=== PATIENT | male | born 1935 | race African-American/Black ===

== ENCOUNTER 2016-05-26 12:13 | Emergency (ER) | payer MEDICARE ==
[~2016-05-26 12:13] MED LIST: AMIO200T2 PO; AMLO10TA2 PO; AMLO5TAB2 PO; BRIM5DRO3 EACHEYE; CARV12.52 PO; CARV3.122 PO; CARV6.25 PO; DABI150C PO; DORZ10DR7 EACHEYE; Doxycycline Hyclate PO; FERR-26 PO; FURO-68 PO; FURO-69 PO; FURO40TA4 PO; Hydrocodone/Acetaminophen PO; LEVO75TA PO; LOSA1TAB18 PO; LOSA25TA PO; LOSA25TA4 PO; LOSA50TA2 PO; Metoprolol Tartrate PO; NITR0.4T SL; PANT40TA3 PO; POTA10CA PO; POTA10TA10 PO; POTA10TA12 PO; POTA20TA82 PO; Potassium Chloride PO; Sennosides/Docusate Sodium PO; TAMS0.4C2 PO; TAMS0.4C97 PO; TOPI25TA32 PO; TRAV5DRO EACHEYE
[2016-05-26 13:29] LABS: BASO % 1 % (0-3); EOS % 2 % (0-3); HEMATOCRIT 37.4 % (39.0-53.0); HEMOGLOBIN 12.4 g/dL (13.0-17.5); LYMPH # 1.2 x10^3/uL (1.0-4.8); LYMPH % 32 % (24-48); MEAN CORPUSCULAR HEMOGLOBIN 30 pg (25-35); MEAN CORPUSCULAR HGB CONC 33 g/dL (31-37); MEAN CORPUSCULAR VOLUME 92 fL (79-100); MONO % 12 % (0-9); NEUT % 54 % (31-73); PLATELET COUNT 162 x10^3/uL (140-400); RED BLOOD COUNT 4.08 x10^6/uL (4.30-5.70); RED CELL DISTRIBUTION WIDTH 14.9 % (11.5-14.5); WHITE BLOOD COUNT 3.8 x10^3/uL (4.0-11.0)
--- NOTE | 2016-05-26 13:29 | PHYS DOC ---
Past Medical History Past Medical History: Arthritis, CAD, Cancer, CHF, Glaucoma, Heart Disease, Hypertension, Hypothyroid, Other Additional Past Medical Histor: prostate ca. Past Surgical History: Knee Replacement, Pacemaker, Other Additional Past Surgical Histo: R rotator cuff, L wrist, bilat knee, DEFIBRILLATOR Alcohol Use: None Drug Use: None Adult General Chief Complaint Chief Complaint: HYPERTENSION HPI HPI Patient is a 80 year old male brought to the ED by his with the complaint of elevated blood pressure today, and also he is feeling "lightheaded and wobbly " which started on Tuesday, 2 days ago. This morning, he took his morning meds about 7 AM as usual. He didn't feel well. Lightheaded and wobbly. Around that time, his checked his blood pressure and it was 150/100. She went out for a while and came back, he still didn't feel well and she rechecked his blood pressure and it was 170/108 at about 10:30 AM. That's high for him. He had diarrhea for about 3 or 4 days last week but that went away and he was feeling okay until 2 days ago again with the lightheaded and wobbly complaints. He denies chest pain. He is somewhat short of air with exertion usually but not worse today. Denies ankle swelling. He has been taking his medications as prescribed. Recently, losartan was stopped , and he was started on Entresto one twice a day. This change was made by his balance wheel screw hole driller. PCP Dr. Yip Automatic Silk Screen Printer Dr. Pisano Review of Systems Review of Systems Constitutional: Denies fever or chills [] Eyes: Denies change in visual acuity, redness, or eye pain [] HENT: Denies nasal congestion or sore throat [] Respiratory: Denies cough or shortness of breath [] Cardiovascular: Denies chest pain or ankle swelling GI: Denies abdominal pain, nausea, vomiting, bloody stools or diarrhea , he did have diarrhea last week for 3 or 4 days : Denies dysuria or hematuria [] Musculoskeletal: Denies back pain or joint pain [] Integument: Denies rash or skin lesions [] Neurologic: Denies headache, focal weakness or sensory changes [] Current Medications Current Medications Current Medications Medications (Trade) Dose Ordered Sig/Deangelo Start Time Stop Time Status Last Admin Dose Admin Potassium Chloride (KCl Oral Soln) 40 meq 1X ONCE 05/26/16 14:30 05/26/16 14:32 DC Allergies Allergies Allergies Coded Allergies Type Severity Reaction Last Updated Verified No Known Drug Allergies 12/11/15 No Physical Exam Physical Exam Constitutional: Well developed, well nourished, no acute distress, non-toxic appearance. Alert, mentating normally. Answers questions appropriately. When I went in the room, the blood pressure monitor read 149/98. As I was visiting with the patient, his blood pressure recheck and systolic was 1:15. HENT: Normocephalic, atraumatic, bilateral external ears normal, nose normal. [ ] Eyes: conjunctiva normal, no discharge. [] Neck: Normal range of motion, no stridor. [] Cardiovascular:Heart rate regular rhythm, no murmur [] Lungs & Thorax: Bilateral breath sounds clear to auscultation [] Abdomen: Obese, Bowel sounds normal, soft, no tenderness, no masses, no pulsatile masses. [] Skin: Warm, dry, no erythema, no rash. [] Extremities: No tenderness, no cyanosis, no clubbing, ROM intact, no edema. [] Neurologic: Alert and oriented X 3, normal motor function, normal sensory function, no focal deficits noted. [] Current Patient Data Vital Signs Vital Signs Date Time Temp Pulse Resp B/P Pulse Ox O2 Delivery O2 Flow Rate FiO2 05/26/16 12:45 98.1 76 22 149/98 98 Room Air 98.1 Lab Values Laboratory Tests Test 05/26/16 12:50 White Blood Count 3.8x10^3/uL (4.0-11.0) L Red Blood Count 4.08x10^6/uL (4.30-5.70) L Hemoglobin 12.4g/dL (13.0-17.5) L Hematocrit 37.4% (39.0-53.0) L Mean Corpuscular Volume 92fL (79-100) Mean Corpuscular Hemoglobin 30pg (25-35) Mean Corpuscular Hemoglobin Concent 33g/dL (31-37) Red Cell Distribution Width 14.9% (11.5-14.5) H Platelet Count 162x10^3/uL (140-400) Neutrophils (%) (Auto) 54% (31-73) Lymphocytes (%) (Auto) 32% (24-48) Monocytes (%) (Auto) 12% (0-9) H Eosinophils (%) (Auto) 2% (0-3) Basophils (%) (Auto) 1% (0-3) Neutrophils # (Auto) 2.0x10^3uL (1.8-7.7) Lymphocytes # (Auto) 1.2x10^3/uL (1.0-4.8) Monocytes # (Auto) 0.4x10^3/uL (0.0-1.1) Eosinophils # (Auto) 0.1x10^3/uL (0.0-0.7) Basophils # (Auto) 0.0x10^3/uL (0.0-0.2) Sodium Level 142mmol/L (136-145) Potassium Level 3.2mmol/L (3.5-5.1) L Chloride Level 101mmol/L (98-107) Carbon Dioxide Level 33mmol/L (21-32) H Anion Gap 8 (6-14) Blood Urea Nitrogen 18mg/dL (8-26) Creatinine 1.7mg/dL (0.7-1.3) H Estimated GFR (Cockcroft-Gault) 47.3 Glucose Level 117mg/dL (70-99) H Calcium Level 9.1mg/dL (8.5-10.1) Magnesium Level 1.9mg/dL (1.8-2.4) Total Bilirubin 1.0mg/dL (0.2-1.0) Direct Bilirubin 0.2mg/dL (0.0-0.2) Aspartate Amino Transferase (AST) 15U/L (15-37) Alanine Aminotransferase (ALT) 17U/L (16-63) Alkaline Phosphatase 47U/L (46-116) Creatine Kinase 118U/L (39-308) Creatine Kinase MB (Mass) 0.6ng/mL (0.0-3.6) Creatine Kinase MB Relative Index 0.5% (0-4) Troponin I Quantitative 0.021ng/mL (0.000-0.055) Total Protein 7.3g/dL (6.4-8.2) Albumin 3.7g/dL (3.4-5.0) Laboratory Tests 05/26/16 12:50 Laboratory Tests 05/26/16 12:50 EKG EKG 12-lead EKG read by me. Fully paced. Heart rate 80. ST and T wave changes secondary to paced rhythm. No STEMI. 1255 [] Radiology/Procedures Radiology/Procedures Chest x-ray read by the radiologist no acute findings. [] Course & Med Decision Making Course & Med Decision Making Pertinent Labs and Imaging studies reviewed. (See chart for details) 80-year-old male who takes multiple medications for hypertension with a history of CHF and renal disease, came in with the concern of an elevated blood pressure , here in the ED his blood pressure is not significantly elevated, but what caused him to check his blood pressure was that he was not feeling well, lightheaded and wobbly. I advised the patient we will check a chest x-ray and some labs, he is agreeable to that plan. Labs were compared to previous labs and renal function is actually good for him , potassium is a little low at 3.2. He was given an oral dose of potassium. He does take potassium every day because he is on furosemide. His troponin is very mildly elevated and it has been several times in the past in the same range, likely due to his renal function. Recheck blood pressure in the ED 142/87. The patient rested comfortably and watched TV without any complaints while here. The patient and his feel comfortable with discharge home and will follow up with PCP and balance wheel screw hole driller as planned. I advised him to be careful with position changes, take his time walking around the house. [] Dragon Disclaimer Dragon Disclaimer This electronic medical record was generated, in whole or in part, using a voice recognition dictation system. Departure Departure Impression: Primary Impression: Light-headed feeling Additional Impression: Hypokalemia Disposition: HOME, SELF-CARE Condition: STABLE Referrals: MYKE YIP MD (PCP) Patient Instructions: Hypokalemia-Brief Additional Instructions: Be careful with position changes while you are feeling lightheaded. Take your time standing up and walking. Next time you have blood drawn, asked them to recheck your potassium. For now, increase potassium in your diet. Problem Qualifiers MAVERICK LANTIGUA MD May 26, 2016 13:29
--- NOTE | 2016-05-26 13:33 | EKG ---
[facility] [address] [place] [address] Test Date: 2016-05-26 Test Time: 12:55:38 Pat Name: TAYE TOMAS Department: Room: Gender: M Rheumatologist: : 1935 Requested By: MAVERICK LANTIGUA Order Number: [id number] Reading MD: Caleb Horton Measurements Intervals [place] Rate: 80 P: -152 PA: 134 QRS: -8 QRSD: 122 T: -139 QT: 456 QTc: 530 Interpretive Statements VENTRICULAR PACED RHYTHM Electronically Signed On 05-26-2016 15:17:05 SECONDARY SPANISH TEACHER by Caleb Horton
[2016-05-26 13:44] LABS: CALCIUM 9.1 mg/dL (8.5-10.1); CREATININE 1.7 mg/dL (0.7-1.3); GFR 47.3; POTASSIUM 3.2 mmol/L (3.5-5.1)
--- NOTE | 2016-05-26 13:46 | RAD ---
Indication: Lightheadedness. Time of exam 1341 hours. Comparison is made with prior chest from 02/10/2016. The heart is enlarged but stable. Cardiac defibrillator remains in place. No infiltrate or failure is detected. No effusion or pneumothorax is seen. Impression: Stable chest. No acute feature is detected.
[2016-05-26 13:49] LABS: ALBUMIN 3.7 g/dL (3.4-5.0); DIRECT BILIRUBIN 0.2 mg/dL (0.0-0.2); MAGNESIUM 1.9 mg/dL (1.8-2.4); TOTAL PROTEIN 7.3 g/dL (6.4-8.2)
[2016-05-26 13:58] LABS: CKMB INDEX 0.5 % (0-4); CKMB MASS 0.6 ng/mL (0.0-3.6)
[2016-05-26 14:30] VITALS: BP 138/81
[2016-05-26] MEDS ORDERED: POTASSIUM CHLORIDE 20 MEQ/15 ML ORAL LIQUID. PO ONE (14:30)
== END 2016-05-26 15:27 | disposition home or self-care (01) ==
LOC: ER 12:13
DX: R42 Dizziness and giddiness (principal); E87.6 Hypokalemia; M19.90 Unspecified osteoarthritis, unspecified site; I25.10 Atherosclerotic heart disease of native coronary artery without angina pectoris; I13.0 Hypertensive heart and chronic kidney disease with heart failure and stage 1 through stage 4 chronic kidney disease, or unspecified chronic kidney disease; I50.9 Heart failure, unspecified; N18.9 Chronic kidney disease, unspecified; E03.9 Hypothyroidism, unspecified; Z95.810 Presence of automatic (implantable) cardiac defibrillator
CPT/HCPCS: 36415; 71010; 80048; 80076; 82553; 83735; 84484; 85027; 93005; 99285-25

== ENCOUNTER 2017-03-11 23:20 | Inpatient (IN) | payer MEDICARE ==
[~2017-03-11] VITALS: Ht 182.9 cm; Wt 136.7 kg
[~2017-03-11 23:20] MED LIST changes: +APIX2.5T PO; -LOSA1TAB18 PO; +LOSA1TAB25 PO; -POTA10CA PO; -POTA10TA10 PO; +POTASSIUM CHLO10 MEQ PO; +SACU1TAB PO; +SACU1TAB7 PO; -TOPI25TA32 PO; +TOPI25TA52 PO
[2017-03-11 23:53] LABS: BASO % 1 % (0-3); EOS % 2 % (0-3); HEMATOCRIT 32.7 % (39.0-53.0); HEMOGLOBIN 10.9 g/dL (13.0-17.5); LYMPH % 26 % (24-48); MEAN CORPUSCULAR HEMOGLOBIN 32 pg (25-35); MEAN CORPUSCULAR HGB CONC 34 g/dL (31-37); MEAN CORPUSCULAR VOLUME 94 fL (79-100); MONO % 18 % (0-9); NEUT % 52 % (31-73); PLATELET COUNT 171 x10^3/uL (140-400); RED BLOOD COUNT 3.47 x10^6/uL (4.30-5.70); RED CELL DISTRIBUTION WIDTH 14.2 % (11.5-14.5); WHITE BLOOD COUNT 3.7 x10^3/uL (4.0-11.0)
[2017-03-11] MEDS ORDERED: dilTIAZem IV PUSH 25 MG/5 ML VIAL ONE (23:59)
[2017-03-12] VITALS (15 sets, daily range): BP systolic 91–142; BP diastolic 51–92
--- NOTE | 2017-03-12 | PHYS DOC ---
Past Medical History Past Medical History: Arthritis, CAD, Cancer, CHF, Glaucoma, Heart Disease, Hypertension, Hypothyroid, Renal Disease, Other Additional Past Medical Histor: prostate ca. Past Surgical History: Knee Replacement, Pacemaker, Other Additional Past Surgical Histo: R rotator cuff, L wrist, bilat knee, DEFIBRILLATOR PLACED 02/28/17 Alcohol Use: None Drug Use: None Adult General Chief Complaint Chief Complaint: CHEST PAIN HPI HPI Patient is a 81 year old male who presents with complaint of chest pain. Patient was brought to the emergency department from the [facility] where he is currently in rehabilitation care. The patient recently had a revision to his pacemaker completed at [facility] on February 28, 2017. The patient was seen in the emergency department earlier this week after having complaints of feeling shocks to his pacemaker. The patient was evaluated and his pacemaker was interrogated which showed no abnormal activity or defibrillations. The patient was transferred back to his fdc. Patient states that starting earlier this evening he started feeling left- sided chest pain. Patient also notes that he was starting to see "light" in his eyes which she states past. Patient did not lose consciousness. The patient was brought to the emergency department for further evaluation. Patient noted to be tachycardic upon arrival. Patient has had no fevers and denies any nausea, vomiting, or abdominal pain currently. Review of Systems Review of Systems Constitutional: Lightheadedness, denies fever or chills [] Eyes: Denies change in visual acuity, redness, or eye pain [] HENT: Denies nasal congestion or sore throat [] Respiratory: Denies cough or shortness of breath [] Cardiovascular: Chest pain[] GI: Denies abdominal pain, nausea, vomiting, bloody stools or diarrhea [] : Denies dysuria or hematuria [] Musculoskeletal: Denies back pain or joint pain [] Integument: Denies rash or skin lesions [] Neurologic: Denies headache, focal weakness or sensory changes [] All other systems were reviewed and found to be within normal limits, except as documented in this note. Current Medications Current Medications Current Medications Medications (Trade) Dose Ordered Sig/Deangelo Start Time Stop Time Status Last Admin Dose Admin Diltiazem HCl (Cardizem) 25 mg STK-MED ONCE 03/11/17 23:59 03/12/17 00:00 DC Diltiazem HCl 125 mg/Sodium Chloride 125 ml @ 10 mls/hr 1X ONCE 03/12/17 00:30 03/12/17 12:59 03/12/17 00:16 10 MLS/HR Sodium Chloride 1,000 ml @ 100 mls/hr Q10H 03/12/17 00:00 03/12/17 09:59 03/12/17 01:00 100 MLS/HR Allergies Allergies Allergies Coded Allergies Type Severity Reaction Last Updated Verified No Known Drug Allergies 12/11/15 No Physical Exam Physical Exam Constitutional: Alert, afebrile, appears in chronically poor health[] HENT: Normocephalic, atraumatic, bilateral external ears normal, oropharynx moist, no oral exudates, nose normal. [] Eyes: PERRLA, EOMI, conjunctiva normal, no discharge. [] Neck: Normal range of motion, no tenderness, supple, no stridor. [] Cardiovascular: Tachycardia, regular rhythm, no murmur [] Lungs & Thorax: Mildly restricted air movement bilaterally, no wheezes or rales[ ] Abdomen: Bowel sounds normal, soft, no tenderness, no masses, no pulsatile masses. [] Skin: Warm, dry, no erythema, no rash. [] Back: No tenderness, no CVA tenderness. [] Extremities: No tenderness, no cyanosis, no clubbing, ROM intact, no edema. [] Neurologic: Alert and oriented X 3, normal motor function, normal sensory function, no focal deficits noted. [] Current Patient Data Vital Signs Vital Signs Date Time Temp Pulse Resp B/P (MAP) Pulse Ox O2 Delivery O2 Flow Rate FiO2 03/12/17 00:27 98.0 130 20 129/86 (100) 93 Room Air 98.0 Lab Values Laboratory Tests Test 03/11/17 23:35 White Blood Count 3.7 x10^3/uL (4.0-11.0) L Red Blood Count 3.47 x10^6/uL (4.30-5.70) L Hemoglobin 10.9 g/dL (13.0-17.5) L Hematocrit 32.7 % (39.0-53.0) L Mean Corpuscular Volume 94 fL (79-100) Mean Corpuscular Hemoglobin 32 pg (25-35) Mean Corpuscular Hemoglobin Concent 34 g/dL (31-37) Red Cell Distribution Width 14.2 % (11.5-14.5) Platelet Count 171 x10^3/uL (140-400) Neutrophils (%) (Auto) 52 % (31-73) Lymphocytes (%) (Auto) 26 % (24-48) Monocytes (%) (Auto) 18 % (0-9) H Eosinophils (%) (Auto) 2 % (0-3) Basophils (%) (Auto) 1 % (0-3) Neutrophils # (Auto) 2.0 x10^3uL (1.8-7.7) Lymphocytes # (Auto) 1.0 x10^3/uL (1.0-4.8) Monocytes # (Auto) 0.7 x10^3/uL (0.0-1.1) Eosinophils # (Auto) 0.1 x10^3/uL (0.0-0.7) Basophils # (Auto) 0.0 x10^3/uL (0.0-0.2) Sodium Level 138 mmol/L (136-145) Potassium Level 4.2 mmol/L (3.5-5.1) Chloride Level 101 mmol/L (98-107) Carbon Dioxide Level 31 mmol/L (21-32) Anion Gap 6 (6-14) Blood Urea Nitrogen 40 mg/dL (8-26) H Creatinine 2.2 mg/dL (0.7-1.3) H Estimated GFR (Cockcroft-Gault) 35.0 BUN/Creatinine Ratio 18 (6-20) Glucose Level 135 mg/dL (70-99) H Calcium Level 9.2 mg/dL (8.5-10.1) Magnesium Level 2.0 mg/dL (1.8-2.4) Total Bilirubin 0.7 mg/dL (0.2-1.0) Aspartate Amino Transferase (AST) 23 U/L (15-37) Alanine Aminotransferase (ALT) 23 U/L (16-63) Alkaline Phosphatase 63 U/L (46-116) Creatine Kinase 96 U/L (39-308) Creatine Kinase MB (Mass) 0.6 ng/mL (0.0-3.6) Creatine Kinase MB Relative Index 0.6 % (0-4) Troponin I Quantitative < 0.017 ng/mL (0.000-0.055) RZ-Tky-M-Type Natriuretic Peptide 1927 pg/mL (0-449) H Total Protein 7.0 g/dL (6.4-8.2) Albumin 3.3 g/dL (3.4-5.0) L Albumin/Globulin Ratio 0.9 (1.0-1.7) L Lipase 38 U/L (73-393) L Laboratory Tests 03/11/17 23:35 Laboratory Tests 03/11/17 23:35 EKG EKG Interpreted by me: Heart rate 145, white complex tachycardia secondary to ventricularly paced rhythm, suspect atrial flutter, no acute ST elevations[] Radiology/Procedures Radiology/Procedures One view AP chest x-ray interpreted by me: Cardiomegaly, no effusions, no new infiltrates[] Course & Med Decision Making Course & Med Decision Making Pertinent Labs and Imaging studies reviewed. (See chart for details) The patient was found to be in atrial flutter in the emergency department and was started on IV Cardizem bolus followed by continuous drip. After initiation, the patient's heart rate has improved and patient's Cardizem drip is being titrated to keep the patient's heart rate below 100. I spoke with Dr. Yip who accepted care patient in hospital. A consult was placed to Dr. Horton of radiology to follow patient in hospital. Critical care time excluding procedures: 35 minutes Dragon Disclaimer Dragon Disclaimer This electronic medical record was generated, in whole or in part, using a voice recognition dictation system. Departure Departure Impression: Primary Impression: Atrial flutter with rapid ventricular response Additional Impressions: Chronic congestive heart failure Chronic kidney disease, stage III (moderate) Disposition: ADMITTED INPATIENT Admitting Physician: Other Condition: GUARDED Referrals: MYKE YIP MD (PCP) Problem Qualifiers Additional Impressions: Chronic congestive heart failure Congestive heart failure type: unspecified congestive heart failure type Qualified Codes: I50.9 - Heart failure, unspecified ALEXANDRE RAY MD Mar 12, 2017 00:00
[2017-03-12 00:03] LABS: CALCIUM 9.2 mg/dL (8.5-10.1); CREATININE 2.2 mg/dL (0.7-1.3); POTASSIUM 4.2 mmol/L (3.5-5.1)
[2017-03-12 00:08] LABS: ALBUMIN 3.3 g/dL (3.4-5.0); ALBUMIN/GLOBULIN RATIO 0.9 (1.0-1.7); TOTAL BILIRUBIN 0.7 mg/dL (0.2-1.0)
[2017-03-12 00:16] LABS: CKMB MASS 0.6 ng/mL (0.0-3.6)
[2017-03-12] MEDS ORDERED: dilTIAZem IV PUSH 25 MG/5 ML VIAL IVP ONE (00:30)
[2017-03-12] MEDS ORDERED: dilTIAZem 125 MG in IV NORMAL SALINE 100ML 100 ML IV ONE (00:30)
[2017-03-12] MEDS ORDERED: IV NORMAL SALINE 1000ML BAG 1,000 ML IV SCH ×2 (01:09)
[2017-03-12] MEDS ORDERED: fentaNYL PF VIAL 100 MCG/2 ML VIAL IV PRN (01:15)
[2017-03-12] MEDS ORDERED: ONDANSETRON PF 4 MG/2 ML VIAL. IV PRN (01:15)
[2017-03-12] MEDS ORDERED: ACETAMINOPHEN 325 MG TABLET. PO PRN (01:15)
[2017-03-12] MEDS ORDERED: INFLUENZA VAX SCREEN BY RX. MC ONE (02:15)
[2017-03-12] MEDS ORDERED: BISA10SU55 RC (02:36)
[2017-03-12] MEDS ORDERED: PANT40TA3 PO (02:36)
[2017-03-12] MEDS ORDERED: APIX5TAB PO (02:36)
[2017-03-12] MEDS ORDERED: TRAM50TA PO (02:36)
[2017-03-12] MEDS ORDERED: ACET325T9 PO (02:36)
[2017-03-12] MEDS ORDERED: MAGN2400 PO (02:36)
--- NOTE | 2017-03-12 07:53 | EKG ---
[facility] [address] [place] [address] Test Date: 2017-03-11 Test Time: 23:30:49 Pat Name: TAYE TOMAS Department: Room: 203 1 Gender: M Scaler: : 1935 Requested By: ALEXANDRE RAY Order Number: [id number] Reading MD: Mahendra Mcclelland MD Measurements Intervals [place] Rate: 144 P: 0 MA: 80 QRS: -157 QRSD: 22 T: -157 QT: 228 QTc: 356 Interpretive Statements SINUS TACHYCARDIA v-paced Electronically Signed On 03-14-2017 9:52:44 TYPEWRITER RIBBON WINDER by Mahendra Mcclelland MD
--- NOTE | 2017-03-12 08:03 | RAD ---
EXAM: Chest, single view. HISTORY: Tachycardia. COMPARISON: 03/07/2017. FINDINGS: A frontal view of the chest is obtained. There is no infiltrate, effusion or pneumothorax. There is enlargement of the cardiac silhouette. There is a cardiac pacemaker defibrillator with leads in expected position. IMPRESSION: 1. Stable enlargement of the cardiac silhouette and cardiac pacemaker defibrillator placement. 2. No acute pulmonary finding.
[2017-03-12] MEDS ORDERED: FLU VACC QS2017-18 (36MOS+)/PF 0.5 ML SYRINGE. VAX IM ONE (09:00)
[2017-03-12] MEDS ORDERED: MAGNESIUM HYDROXIDE 2,400 MG/30 ML ORAL.SUSP. PO PRN (09:15)
--- NOTE | 2017-03-12 09:37 | PDOC ---
Provider Note Provider Note history and physical dictated # [id number] MYKE CHOUDHURY MD Mar 12, 2017 09:37
[2017-03-12] MEDS ORDERED: SACUBITRIL/VALSARTAN 24/26MG TABLET. PO SCH (10:00)
[2017-03-12] MEDS ORDERED: METOPROLOL SUCC 24HR ER 50 MG TAB.ER.24H. PO SCH (10:00)
--- NOTE | 2017-03-12 10:04 | PDOC2 ---
CARDIAC CONSULT DATE OF CONSULT Date of Consult DATE: 03/12/17 TIME: 09:51 REASON FOR CONSULT Reason for Consult: AFIB RVR REFERRING PHYSICIAN Referring Physician: Ying SOURCE Source: Chart review, Patient HISTORY OF PRESENT ILLNESS HISTORY OF PRESENT ILLNESS This is an 81 yo male admitted for complains of CP. Upon admission from SNU he was noted with fast HR and it was determined to be AFIB RVR. He recently had revision to his AICD at [facility] about 3 weeks ago. He was see in ED over a week ago due to complains of feeling shocks but his device was checked and no noted shocks were noted. Today he has been having symptoms of left sharp pain in his chest bu no SOA and slighly dizzy. Denies any nausea. passing out. He takes his medications regularly and does not refuse. Presently he is sitting comfortably and denies any symptoms. In addition to this he has been noted with left arm swelling and pain. Apparently he has not been moving his arm regularly due to restriction from device implantation. PAST MEDICAL HISTORY Cardiovascular: AFIB (paroxysmal), CHF, HTN, Hyperlipidemia, Other (ICD) GI: GERD Hepatobiliary: No pertinent hx Psych: No pertinent hx Musculoskeletal: Osteoarthritis Rheumatologic: No pertinent hx ENT: Other (glaucoma) Renal/: Prostate Ca. (with radiation) Endocrine: Hypothyroidism PAST SURGICAL HISTORY Past Surgical History: Pacemaker (Biv ICD), Total knee replacement (bilateral) FAMILY HISTORY Family History noncontributory to age SOCIAL HISTORY Smoke: No ALCOHOL: none Drugs: None CURRENT MEDICATIONS CURRENT MEDICATIONS Current Medications Medications (Trade) Dose Ordered Sig/Deangelo Route PRN Reason Start Time Stop Time Status Last Admin Dose Admin Sodium Chloride 1,000 ml @ 100 mls/hr Q10H IV 03/12/17 00:00 03/12/17 02:56 DC 03/12/17 01:00 Diltiazem HCl (Cardizem) 20 mg 1X ONCE IVP 03/12/17 00:30 03/12/17 00:31 DC 03/12/17 00:03 Diltiazem HCl 125 mg/Sodium Chloride 125 ml @ 10 mls/hr 1X ONCE IV 03/12/17 00:30 03/12/17 12:59 03/12/17 00:16 ALLERGIES ALLERGIES: Coded Allergies: No Known Drug Allergies (Unverified , 12/11/15) ROS Review of System 14 point ROS evaluated with pertinent positives noted per HPI PHYSICAL EXAM General: Alert, Oriented X3, Cooperative, No acute distress HEENT: Atraumatic, Mucous membr. moist/pink Lungs: Clear to auscultation, Normal air movement Heart: Other (AFIB RVR) Abdomen: Soft, No tenderness, Other (obesity) Skin: No breakdown, No significant lesion, Other (left chest AICD placement incision intact with ) Neuro: Normal speech, Sensation intact Psych/Mental Status: Mental status NL, Mood NL MUSCULOSKELETAL: Osteoarthritic changes both hands VITALS VITALS Vital Signs Date Time Temp Pulse Resp B/P (MAP) Pulse Ox O2 Delivery O2 Flow Rate FiO2 03/12/17 06:30 82 115/76 (89) 03/12/17 02:17 Nasal Cannula 2.0 03/12/17 02:03 98.0 18 97 98.0 LABS Lab: Laboratory Tests Test 03/11/17 23:35 White Blood Count 3.7 x10^3/uL (4.0-11.0) Red Blood Count 3.47 x10^6/uL (4.30-5.70) Hemoglobin 10.9 g/dL (13.0-17.5) Hematocrit 32.7 % (39.0-53.0) Mean Corpuscular Volume 94 fL (79-100) Mean Corpuscular Hemoglobin 32 pg (25-35) Mean Corpuscular Hemoglobin Concent 34 g/dL (31-37) Red Cell Distribution Width 14.2 % (11.5-14.5) Platelet Count 171 x10^3/uL (140-400) Neutrophils (%) (Auto) 52 % (31-73) Lymphocytes (%) (Auto) 26 % (24-48) Monocytes (%) (Auto) 18 % (0-9) Eosinophils (%) (Auto) 2 % (0-3) Basophils (%) (Auto) 1 % (0-3) Neutrophils # (Auto) 2.0 x10^3uL (1.8-7.7) Lymphocytes # (Auto) 1.0 x10^3/uL (1.0-4.8) Monocytes # (Auto) 0.7 x10^3/uL (0.0-1.1) Eosinophils # (Auto) 0.1 x10^3/uL (0.0-0.7) Basophils # (Auto) 0.0 x10^3/uL (0.0-0.2) Sodium Level 138 mmol/L (136-145) Potassium Level 4.2 mmol/L (3.5-5.1) Chloride Level 101 mmol/L (98-107) Carbon Dioxide Level 31 mmol/L (21-32) Anion Gap 6 (6-14) Blood Urea Nitrogen 40 mg/dL (8-26) Creatinine 2.2 mg/dL (0.7-1.3) Estimated GFR (Cockcroft-Gault) 35.0 BUN/Creatinine Ratio 18 (6-20) Glucose Level 135 mg/dL (70-99) Calcium Level 9.2 mg/dL (8.5-10.1) Magnesium Level 2.0 mg/dL (1.8-2.4) Total Bilirubin 0.7 mg/dL (0.2-1.0) Aspartate Amino Transf (AST/SGOT) 23 U/L (15-37) Alanine Aminotransferase (ALT/SGPT) 23 U/L (16-63) Alkaline Phosphatase 63 U/L (46-116) Creatine Kinase 96 U/L (39-308) Creatine Kinase MB (Mass) 0.6 ng/mL (0.0-3.6) Creatine Kinase MB Relative Index 0.6 % (0-4) Troponin I Quantitative < 0.017 ng/mL (0.000-0.055) FW-Cpb-T-Type Natriuretic Peptide 1927 pg/mL (0-449) Total Protein 7.0 g/dL (6.4-8.2) Albumin 3.3 g/dL (3.4-5.0) Albumin/Globulin Ratio 0.9 (1.0-1.7) Lipase 38 U/L (73-393) ASSESSMENT/PLAN ASSESSMENT/PLAN 1. PAFIB RVR: dig x1. CP likely from palpitations from RVR 2. ICM with DEBURRER STRIP-d recent redo [facility] 3. Possible LUE DVT? placed on high dose eliquis verifying sono today, Defer to PCP 4. HTN 5. Chronic systolic CHF: appears compensated 6. ALESSANDRA on CKD: hydrated overnight, caution with further IV hydration. Recommendations 1. On entresto hold for now, stop cardizem drip, Dig IV x1, increase toprol. Continue with amiodarone. Interrogate device. 2. If DVT is confirmed then will defer further eliquis dosing to PCP otherwise if neg then would recommend 2.5 mg bid for stroke prevention 3. Continue with secondary prevention Problems: BELINDA VILLALPANDO APRN Mar 12, 2017 10:04
[2017-03-12] MEDS ORDERED: APIXABAN 2.5 MG TABLET. PO SCH (10:30)
[2017-03-12] MEDS: LEVOTHYROXINE 75 MCG TABLET PO SCH (11:25)
[2017-03-12] MEDS: AMIODARONE HCL 200 MG TABLET. PO SCH (11:25)
[2017-03-12] MEDS: PANTOPRAZOLE 40 MG TABLET.DR. PO SCH (11:25)
[2017-03-12] MEDS ORDERED: DIGOXIN IV 500 MCG/2 ML AMPUL. IV ONE (12:00)
[2017-03-12 12:29] LABS: CALCIUM 8.9 mg/dL (8.5-10.1); CREATININE 2.2 mg/dL (0.7-1.3); MAGNESIUM 1.9 mg/dL (1.8-2.4); POTASSIUM 3.9 mmol/L (3.5-5.1)
--- NOTE | 2017-03-12 15:56 | RAD ---
Left upper extremity venous duplex ultrasound CLINICAL HISTORY: Left arm pain deep venous thrombosis. Using spectral Doppler analysis, color flow Doppler, and grayscale imaging techniques the venous system of the left upper extremity was evaluated. The left internal jugular vein contains hypoechoic thrombus. Minimal amount of blood flow is identified within the internal jugular vein. The left subclavian vein shows thrombus with minimal amount of blood flow within it. The left axillary vein appears completely occluded by thrombus. The deep brachial veins are occluded by thrombus. The cephalic vein and basilic vein are patent. The forearm deep radial and ulnar veins are patent. IMPRESSION: There is a DVT involving the left internal jugular, subclavian, and deep brachial veins. Electronically signed by: Harmony Jimenez MD (03/12/2017 3:53 PM) [facility] [place] [facility] [place]
[2017-03-12] MEDS ORDERED: METOPROLOL SUCC 24HR ER 25 MG TAB.ER.24H. PO ONE (16:00)
[2017-03-12] MEDS: APIXABAN 5 MG TABLET. PO SCH ×2 (16:10→21:08)
[2017-03-12] MEDS ORDERED: APIXABAN 5 MG TABLET. PO SCH (21:00)
[2017-03-12] MEDS: DORZOLAMIDE 2% OPHTH SOLUTION 10ML BOTTLE. OS SCH (21:08)
[2017-03-12] MEDS: LATANOPROST 0.005% OPHTH SOLUTION 2.5ML BOTTLE. OU SCH (21:08)
[2017-03-12] MEDS: TAMSULOSIN 0.4 MG CAP.ER.24H. PO SCH (21:08)
[2017-03-12] MEDS: traMADol 50 MG TABLET PO PRN (23:42)
[2017-03-13 02:54] VITALS: BP 123/88
[2017-03-13 05:42] LABS: BASO % 1 % (0-3); EOS % 3 % (0-3); HEMATOCRIT 29.7 % (39.0-53.0); LYMPH # 1.1 x10^3/uL (1.0-4.8); LYMPH % 30 % (24-48); MEAN CORPUSCULAR HEMOGLOBIN 32 pg (25-35); MEAN CORPUSCULAR HGB CONC 34 g/dL (31-37); MEAN CORPUSCULAR VOLUME 94 fL (79-100); MONO % 17 % (0-9); NEUT % 49 % (31-73); PLATELET COUNT 154 x10^3/uL (140-400); RED BLOOD COUNT 3.17 x10^6/uL (4.30-5.70); RED CELL DISTRIBUTION WIDTH 13.9 % (11.5-14.5); WHITE BLOOD COUNT 3.7 x10^3/uL (4.0-11.0)
[2017-03-13 06:12] LABS: CREATININE 2.1 mg/dL (0.7-1.3); POTASSIUM 3.9 mmol/L (3.5-5.1)
[2017-03-13] MEDS: PANTOPRAZOLE 40 MG TABLET.DR. PO SCH (06:40)
[2017-03-13] MEDS: LEVOTHYROXINE 75 MCG TABLET PO SCH (06:40)
[2017-03-13 07:00] VITALS: BP 153/89
[2017-03-13] MEDS: AMIODARONE HCL 200 MG TABLET. PO SCH (08:06)
[2017-03-13] MEDS: APIXABAN 5 MG TABLET. PO SCH ×2 (08:08→20:35)
[2017-03-13] MEDS ORDERED: METOPROLOL SUCC 24HR ER 25 MG TAB.ER.24H. PO SCH (09:00)
[2017-03-13] MEDS ORDERED: METOPROLOL SUCC 24HR ER 25 MG TAB.ER.24H. PO ONE (09:00)
--- NOTE | 2017-03-13 09:14 | PDOC ---
PROGRESS NOTES Subjective Subjective my history and physical is not on chart but dictated yesterday. venous doppler shows DVT of left subclavian vein and left axillary vein and left internal jugular vein. he has several pacemaker leads in left subclavian vein per dr. olivarez. will continue eliquis 10 mg bid thru 03/15 which will complete 7 days of rx and then decrease it to 5 mg bid thereafter for DVT. he is eating breakfast. still with tachycardia with rate in 100-110 and will increase metoprolol. off iv cardizem drip. has chronic dyspnea on exertion due to morbid obesity and deconditioning, he wants a flu shot and says he has not received one yet. lab reviewed. blood pressure high and will resume entresto. Objective Objective Vital Signs Date Time Temp Pulse Resp B/P (MAP) Pulse Ox O2 Delivery O2 Flow Rate FiO2 03/13/17 08:07 102 153/89 03/13/17 07:00 98.1 18 99 Nasal Cannula 2.0 98.1 Intake and Output 03/14/17 07:00 # Voids 1 # Bowel Movements 1 Physical Exam Abdomen: Soft Heart: Normal S1, Normal S2 Extremities: No edema General: Alert HEENT: Atraumatic Lungs: Clear to auscultation Neuro: Normal speech Psych/Mental Status: Mental status NL Skin: No rashes Assessment Assessment Problems1. Paroxysmal atrial flutter/fibrillation with RVR -VR better Non -ischemic cardiomyopathy chronic kidney disease stage 3 recent placement of new right ventricular endocardial pacemaker lead and adjust of left ventricular epicardial pacemaker lead at [facility] last week morbid obesity deconditioning hypothyroidism DVT left subclavian and axillary and internal jugular veins Medical Problems: (1) Atrial flutter with rapid ventricular response Status: Acute (2) Chronic congestive heart failure Status: Acute (3) Chronic kidney disease, stage III (moderate) Status: Acute Plan Plan of Care increase metoprolol increase kcl continue telemetry continue eliquis 10 mg bid thru 03/15 then reduce dose to 5 mg bid PT and OT Comment Review of Relevant I have reviewed the following items kim (where applicable) has been applied. Labs Laboratory Tests Test 03/11/17 23:35 03/12/17 12:00 03/13/17 04:30 03/13/17 05:10 White Blood Count 3.7 x10^3/uL (4.0-11.0) Red Blood Count 3.47 x10^6/uL (4.30-5.70) Hemoglobin 10.9 g/dL (13.0-17.5) Hematocrit 32.7 % (39.0-53.0) Mean Corpuscular Volume 94 fL (79-100) Mean Corpuscular Hemoglobin 32 pg (25-35) Mean Corpuscular Hemoglobin Concent 34 g/dL (31-37) Red Cell Distribution Width 14.2 % (11.5-14.5) Platelet Count 171 x10^3/uL (140-400) Neutrophils (%) (Auto) 52 % (31-73) Lymphocytes (%) (Auto) 26 % (24-48) Monocytes (%) (Auto) 18 % (0-9) Eosinophils (%) (Auto) 2 % (0-3) Basophils (%) (Auto) 1 % (0-3) Neutrophils # (Auto) 2.0 x10^3uL (1.8-7.7) Lymphocytes # (Auto) 1.0 x10^3/uL (1.0-4.8) Monocytes # (Auto) 0.7 x10^3/uL (0.0-1.1) Eosinophils # (Auto) 0.1 x10^3/uL (0.0-0.7) Basophils # (Auto) 0.0 x10^3/uL (0.0-0.2) Sodium Level 138 mmol/L (136-145) 138 mmol/L (136-145) 140 mmol/L (136-145) Potassium Level 4.2 mmol/L (3.5-5.1) 3.9 mmol/L (3.5-5.1) 3.9 mmol/L (3.5-5.1) Chloride Level 101 mmol/L (98-107) 102 mmol/L (98-107) 103 mmol/L (98-107) Carbon Dioxide Level 31 mmol/L (21-32) 30 mmol/L (21-32) 30 mmol/L (21-32) Anion Gap 6 (6-14) 6 (6-14) 7 (6-14) Blood Urea Nitrogen 40 mg/dL (8-26) 38 mg/dL (8-26) 39 mg/dL (8-26) Creatinine 2.2 mg/dL (0.7-1.3) 2.2 mg/dL (0.7-1.3) 2.1 mg/dL (0.7-1.3) Estimated GFR (Cockcroft-Gault) 35.0 35.0 37.0 BUN/Creatinine Ratio 18 (6-20) Glucose Level 135 mg/dL (70-99) 124 mg/dL (70-99) 101 mg/dL (70-99) Calcium Level 9.2 mg/dL (8.5-10.1) 8.9 mg/dL (8.5-10.1) 9.0 mg/dL (8.5-10.1) Magnesium Level 2.0 mg/dL (1.8-2.4) 1.9 mg/dL (1.8-2.4) 2.1 mg/dL (1.8-2.4) Total Bilirubin 0.7 mg/dL (0.2-1.0) Aspartate Amino Transf (AST/SGOT) 23 U/L (15-37) Alanine Aminotransferase (ALT/SGPT) 23 U/L (16-63) Alkaline Phosphatase 63 U/L (46-116) Creatine Kinase 96 U/L (39-308) Creatine Kinase MB (Mass) 0.6 ng/mL (0.0-3.6) Creatine Kinase MB Relative Index 0.6 % (0-4) Troponin I Quantitative < 0.017 ng/mL (0.000-0.055) HY-Gfo-G-Type Natriuretic Peptide 1927 pg/mL (0-449) Total Protein 7.0 g/dL (6.4-8.2) Albumin 3.3 g/dL (3.4-5.0) Albumin/Globulin Ratio 0.9 (1.0-1.7) Lipase 38 U/L (73-393) Thyroid Stimulating Hormone (TSH) 1.138 uIU/mL (0.358-3.74) Test 03/13/17 05:15 White Blood Count 3.7 x10^3/uL (4.0-11.0) Red Blood Count 3.17 x10^6/uL (4.30-5.70) Hemoglobin 10.0 g/dL (13.0-17.5) Hematocrit 29.7 % (39.0-53.0) Mean Corpuscular Volume 94 fL (79-100) Mean Corpuscular Hemoglobin 32 pg (25-35) Mean Corpuscular Hemoglobin Concent 34 g/dL (31-37) Red Cell Distribution Width 13.9 % (11.5-14.5) Platelet Count 154 x10^3/uL (140-400) Neutrophils (%) (Auto) 49 % (31-73) Lymphocytes (%) (Auto) 30 % (24-48) Monocytes (%) (Auto) 17 % (0-9) Eosinophils (%) (Auto) 3 % (0-3) Basophils (%) (Auto) 1 % (0-3) Neutrophils # (Auto) 1.8 x10^3uL (1.8-7.7) Lymphocytes # (Auto) 1.1 x10^3/uL (1.0-4.8) Monocytes # (Auto) 0.6 x10^3/uL (0.0-1.1) Eosinophils # (Auto) 0.1 x10^3/uL (0.0-0.7) Basophils # (Auto) 0.0 x10^3/uL (0.0-0.2) Laboratory Tests Test 03/12/17 12:00 03/13/17 04:30 03/13/17 05:10 03/13/17 05:15 Sodium Level 138 mmol/L (136-145) 140 mmol/L (136-145) Potassium Level 3.9 mmol/L (3.5-5.1) 3.9 mmol/L (3.5-5.1) Chloride Level 102 mmol/L (98-107) 103 mmol/L (98-107) Carbon Dioxide Level 30 mmol/L (21-32) 30 mmol/L (21-32) Anion Gap 6 (6-14) 7 (6-14) Blood Urea Nitrogen 38 mg/dL (8-26) 39 mg/dL (8-26) Creatinine 2.2 mg/dL (0.7-1.3) 2.1 mg/dL (0.7-1.3) Estimated GFR (Cockcroft-Gault) 35.0 37.0 Glucose Level 124 mg/dL (70-99) 101 mg/dL (70-99) Calcium Level 8.9 mg/dL (8.5-10.1) 9.0 mg/dL (8.5-10.1) Magnesium Level 1.9 mg/dL (1.8-2.4) 2.1 mg/dL (1.8-2.4) Thyroid Stimulating Hormone (TSH) 1.138 uIU/mL (0.358-3.74) White Blood Count 3.7 x10^3/uL (4.0-11.0) Red Blood Count 3.17 x10^6/uL (4.30-5.70) Hemoglobin 10.0 g/dL (13.0-17.5) Hematocrit 29.7 % (39.0-53.0) Mean Corpuscular Volume 94 fL (79-100) Mean Corpuscular Hemoglobin 32 pg (25-35) Mean Corpuscular Hemoglobin Concent 34 g/dL (31-37) Red Cell Distribution Width 13.9 % (11.5-14.5) Platelet Count 154 x10^3/uL (140-400) Neutrophils (%) (Auto) 49 % (31-73) Lymphocytes (%) (Auto) 30 % (24-48) Monocytes (%) (Auto) 17 % (0-9) Eosinophils (%) (Auto) 3 % (0-3) Basophils (%) (Auto) 1 % (0-3) Neutrophils # (Auto) 1.8 x10^3uL (1.8-7.7) Lymphocytes # (Auto) 1.1 x10^3/uL (1.0-4.8) Monocytes # (Auto) 0.6 x10^3/uL (0.0-1.1) Eosinophils # (Auto) 0.1 x10^3/uL (0.0-0.7) Basophils # (Auto) 0.0 x10^3/uL (0.0-0.2) Medications Current Medications Sodium Chloride 1,000 ml @ 100 mls/hr Q10H IV Last administered on 03/12/17 01:00; Start 03/12/17 at 00:00; Stop 03/12/17 at 02:56; Status DC Diltiazem HCl (Cardizem) 20 mg 1X ONCE IVP Last administered on 03/12/17 00: 03; Start 03/12/17 at 00:30; Stop 03/12/17 at 00:31; Status DC Diltiazem HCl 125 mg/Sodium Chloride 125 ml @ 10 mls/hr 1X ONCE IV Last administered on 03/12/17t 00:16; Start 03/12/17 at 00:30; Stop 03/12/17 at 10 :25; Status DC Diltiazem HCl (Cardizem) 25 mg STK-MED ONCE .ROUTE ; Start 03/11/17 at 23:59; Stop 03/12/17 at 00:00; Status DC Ondansetron HCl (Zofran) 4 mg PRN Q8HRS PRN IV NAUSEA/VOMITING; Start at 01:15; Stop 03/13/17 at 01:14; Status DC Fentanyl Citrate (Fentanyl 2ml Vial) 50 mcg PRN Q2HR PRN IV SEVERE PAIN; Start 03/12/17 at 01:15; Stop 03/13/17 at 01:14; Status DC Sodium Chloride 1,000 ml @ 30 mls/hr Q24H IV ; Start 03/12/17 at 01:09; Stop 03/13/17 at 01:08; Status DC Acetaminophen (Tylenol) 650 mg PRN Q4HRS PRN PO FEVER; Start 03/12/17 at 01:15 ; Stop 03/12/17 at 09:28; Status DC Info (Do NOT chart on this placeholder) 1 each 1X ONCE MC ; Start 03/12/17 at 02:15; Stop 03/12/17 at 02:16; Status UNV Influenza Virus Vaccine Quadrival (Fluarix Quad 1162-2936 Syringe) 0.5 ml ONCE ONCE VAX IM ; Start 03/12/17 at 09:00; Stop 03/12/17 at 09:01; Status DC Apixaban (Eliquis) 10 mg BID PO ; Start 03/12/17 at 21:00; Stop 03/12/17 at 21 :00; Status DC Metoprolol Succinate (Toprol Xl) 50 mg DAILY PO ; Start 03/12/17 at 10:00; Stop 03/12/17 at 10:25; Status DC Potassium Chloride (Klor-Con) 10 meq QODAY PO ; Start 03/14/17 at 09:00 Amiodarone HCl (Cordarone) 200 mg DAILY PO Last administered on 03/13/17 08: 06; Start 03/12/17 at 10:00 Tramadol HCl (Ultram) 50 mg PRN Q6HRS PRN PO PAIN Last administered on 23:42; Start 03/12/17 at 09:15 Acetaminophen (Tylenol) 650 mg PRN Q6HRS PRN PO MILD PAIN / TEMP; Start at 09:15 Magnesium Hydroxide (Milk Of Magnesia) 2,400 mg PRN DAILY PRN PO CONSTIPATION; Start 03/12/17 at 09:15 Furosemide (Lasix) 40 mg QODAY PO ; Start 03/14/17 at 09:00 Levothyroxine Sodium (Synthroid) 75 mcg DAILY07 PO Last administered on 06:40; Start 03/12/17 at 10:00 Pantoprazole Sodium (Protonix) 40 mg DAILYAC PO Last administered on 06:40; Start 03/12/17 at 10:00 Tamsulosin HCl (Flomax) 0.4 mg QHS PO Last administered on 03/12/17 21:08; Start 03/12/17 at 21:00 Dorzolamide HCl (Trusopt) 1 drop BID OS Last administered on 03/12/17 21:08; Start 03/12/17 at 21:00 Sacubitril/ Valsartan (Entresto 24 Mg-26 Mg) 1 tab BID PO ; Start 03/12/17 at 10:00; Stop 03/12/17 at 10:25; Status DC Al Hydroxide/Mg Hydroxide (Mylanta Plus Xs) 30 ml PRN Q2HR PRN PO HEARTBURN / GAS; Start 03/12/17 at 09:15 Latanoprost (Xalatan) 1 drop QHS OU Last administered on 03/12/17 21:08; Start 03/12/17 at 21:00 Apixaban (Eliquis) 2.5 mg BID PO ; Start 03/12/17 at 10:30; Stop 03/12/17 at 10:30; Status DC Metoprolol Succinate (Toprol Xl) 75 mg DAILY PO Last administered on 08:07; Start 03/13/17 at 09:00; Stop 03/13/17 at 09:00; Status DC Digoxin (Lanoxin) 500 mcg 1X ONCE IV Last administered on 03/12/17 12:33; Start 03/12/17 at 12:00; Stop 03/12/17 at 12:01; Status DC Metoprolol Succinate (Toprol Xl) 75 mg 1X ONCE PO Last administered on 16:22; Start 03/12/17 at 16:00; Stop 03/12/17 at 16:01; Status DC Apixaban (Eliquis) 10 mg BID PO Last administered on 03/13/17 08:08; Start 03/12/17 at 16:30 Metoprolol Succinate (Toprol Xl) 100 mg DAILY PO ; Start 03/14/17 at 09:00 Metoprolol Succinate (Toprol Xl) 25 mg 1X ONCE PO ; Start 03/13/17 at 09:00; Stop 03/13/17 at 09:01 Active Scripts Active Carvedilol 12.5 Mg Tablet 25 Mg PO BIDWMEALS Amiodarone Hcl 200 Mg Tablet 200 Mg PO DAILY Protonix (Pantoprazole Sodium) 40 Mg Tablet 40 Mg PO DAILYAC Reported Dulcolax (Bisacodyl) 10 Mg Supp.rect 10 Mg RC PRN DAILY PRN Milk Of Magnesia (Magnesium Hydroxide) 2,400 Mg/10 Ml Oral.susp 2,400 Mg PO Protonix (Pantoprazole Sodium) 40 Mg Tablet.dr 1 Tab PO DAILY Tylenol (Acetaminophen) 325 Mg Tablet 1-2 Tab PO QID Tramadol Hcl 50 Mg Tablet 50 Mg PO Q6H PRN Eliquis (Apixaban) 5 Mg Tablet 5 Mg PO BID Potassium Chloride 10 Meq Tablet.er 10 Meq PO DAILY Furosemide 40 Mg Tablet 40 Mg PO DAILY Tamsulosin Hcl 0.4 Mg Cap.er.24h 1 Cap PO BIDAFTMEAL Synthroid (Levothyroxine Sodium) 75 Mcg Tablet 75 Mcg PO DAILYAC Dorzolamide-Timolol Eye Drops (Dorzolamide Hcl/Timolol Maleat) 10 Ml Drops 1 Drop EACHEYE BID Vitals/I & O Vital Sign - Last 24 Hours 03/12/17 03/12/17 03/12/17 03/12/17 10:51 11:25 12:33 13:37 Temp 98.0 98.0 Pulse 111 120 112 110 Resp 18 B/P (MAP) 109/68 (82) 109/68 109/68 141/54 (83) Pulse Ox 97 O2 Delivery Nasal Cannula O2 Flow Rate 2.0 03/12/17 03/12/17 03/12/17 03/12/17 14:42 16:22 19:39 20:00 Temp 97.9 98.3 97.9 98.3 Pulse 101 120 108 Resp B/P (MAP) 91/62 (72) 108/72 132/88 (103) Pulse Ox 96 96 O2 Delivery Nasal Cannula Nasal Cannula O2 Flow Rate 2.0 2.0 2.0 03/12/17 03/12/17 03/13/17 03/13/17 22:51 23:42 00:42 02:54 Temp 98.8 98.4 98.8 98.4 Pulse 108 102 Resp 18 B/P (MAP) 142/92 (109) 123/88 (100) Pulse Ox 97 96 O2 Delivery Nasal Cannula Room Air Nasal Cannula O2 Flow Rate 2.0 2.0 2.0 03/13/17 03/13/17 03/13/17 07:00 08:06 08:07 Temp 98.1 98.1 Pulse 93 106 102 Resp 18 B/P (MAP) 153/89 (110) 123/88 153/89 Pulse Ox 99 O2 Delivery Nasal Cannula O2 Flow Rate 2.0 MYKE CHOUDHURY MD Mar 13, 2017 09:14
[2017-03-13] MEDS: DORZOLAMIDE 2% OPHTH SOLUTION 10ML BOTTLE. OS SCH ×2 (09:36→20:35)
[2017-03-13] MEDS: POTASSIUM CHLORIDE 10 MEQ TABLET.ER. PO SCH (09:37)
--- NOTE | 2017-03-13 10:27 | HP ---
ADMIT DATE: 03/12/2017 PATIENT LOCATION: He is in room 203. HISTORY OF PRESENT ILLNESS: The patient is an 81-year-old -[place] male who has a history of a nonischemic cardiomyopathy with left ventricular ejection fraction 25% to 30% and who has chronic kidney disease stage 3 and chronic systolic congestive heart failure, who was recently dismissed from [facility] on 03/03/2017, where he underwent a revision of his pacemaker leads. He had a new right ventricular endocardial lead placed and his left ventricle epicardial lead was adjusted as his pacemaker was not capturing well, which led to the procedure. The patient had some hypotension and his furosemide was changed to every other day and his Entresto was decreased to mg one b.i.d. Because his left shoulder was immobilized due to the pacemaker adjustment, he had mobility and self-care deficits and was admitted to a nursing home facility. He had a venous Doppler of the left upper extremity, which showed a left axillary vein thrombosis and his Eliquis was increased to 10 mg b.i.d. I spoke with Dr. Pisano, who was taking care of the patient at the nursing home facility, who was going to treat him with Eliquis at a higher dose of 10 mg b.i.d. for 7 days, which would bring us through Tuesday, 03/15 and then decrease his dose down to about anywhere from 2.5 to 5 mg b.i.d. thereafter. She was leaning towards a lower dose, 2.5 mg b.i.d., due to his continuous chronic kidney disease stage 3, however. The patient developed some rapid episodes of tachycardia and he felt that his heart was racing, and according to the Emergency Room doctor, he complained of chest pain, although he denied chest pain when I asked him and he was sent to the [facility] Emergency Room, where he was noted to have a tachycardia. The Emergency Room doctor thought he was in atrial flutter and started him on IV Cardizem drip, which he is still receiving. The patient was admitted to the hospital for further evaluation and treatment of his tachyarrhythmia. He denies any chest pain this morning and appears comfortable on the Cardizem drip and his heart rate is anywhere from 108-118 in the room at this time. His blood pressure has been variable with a systolic blood pressure of 100/70 at admission to 98/51 earlier today and 115/76, his latest one recorded. He is therefore admitted for further evaluation of his tachyarrhythmia. ALLERGIES AND INTOLERANCES: None. MEDICATIONS PRIOR TO ADMISSION: Include Eliquis 10 mg b.i.d., carvedilol 25 mg b.i.d., potassium chloride 10 mEq every day, amiodarone 200 mg everyday, tramadol 50 to 100 mg every 6 hours p.r.n., Tylenol 325 mg 2 tablets every 6 hours p.r.n., Xalatan 0.005% one drop in both eyes at bedtime, dorzolamide solution 2% one drop to the left eye b.i.d., furosemide 40 mg daily, levothyroxine 75 mcg every day, Protonix 40 mg every day, Flomax 0.4 mg b.i.d. and Entresto mg one b.i.d. PAST MEDICAL HISTORY: Past history is significant for nonischemic cardiomyopathy with left ventricular ejection fraction of 25% to 30%. He has chronic systolic congestive heart failure, previous history of hypertension, gastroesophageal reflux disease, hypothyroidism, paroxysmal atrial flutter, prostate cancer treated with radiation therapy in 2005, bilateral total knee arthroplasties in 1996, appendectomy, tonsillectomy and pacemaker placed in 2008 with the pacemaker lead revisions done about a week and a half ago. He has a right rotator cuff repair, recent left axillary deep vein thrombosis. Electrical conversion for atrial flutter in 12/2015. He has glaucoma and chronic kidney disease stage 3. He has a pacemaker/defibrillator. SOCIAL HISTORY: He does not drink alcohol nor does he smoke cigarettes. He is . He was currently residing in a nursing home facility; otherwise, he lives at home with his . FAMILY HISTORY: Noncontributory. REVIEW OF SYSTEMS: GENERAL: There has been no fever, chills or sweats in the last 3 days. CARDIOVASCULAR: He denied chest pain, but admitted to the Emergency Room physician that he had had. PULMONARY: No cough. GASTROINTESTINAL: No constipation. SKIN: No rashes. NEUROLOGIC: No focal weakness. ENDOCRINE: No diabetes mellitus. The rest of systems reviewed are negative, except as stated in the history of present illness. PHYSICAL EXAMINATION: VITAL SIGNS: His temperature is 98 degrees, apical pulse is about 108, respiratory rate is 18 and his last blood pressure is 115/76. HEENT: Eyes, gaze is conjugate. Extraocular muscles are intact. Mouth, tongue is midline. NECK: There is no cervical lymphadenopathy, no thyromegaly or thyroid enlargement. HEART: Reveals an S1, S2. There is no S3 or murmur. He has got a pacemaker. His pacemaker site below his left clavicle looks fine, without any redness. He is wearing a left shoulder immobilizer. He does have about 2+ edema in his left forearm. SKIN: No rashes. LUNGS: Clear. ABDOMEN: Soft, obese without hepatosplenomegaly, masses or tenderness. LOWER EXTREMITIES: Without edema. He has got scars over his knees from his previous total knee arthroplasties. NEUROLOGICAL EXAMINATION: He moves his legs as well as his right arm. His left arm is immobilized. ASSESSMENT: 1. Tachyarrhythmia. It is possible it could be paroxysmal atrial flutter. Apparently, his pacemaker was interrogated in the Emergency Room and the Emergency Room doctor said that it was interrogated well. 2. Paroxysmal atrial flutter. 3. Deep vein thrombosis of the left axillary vein, done on the recent Doppler at the [facility]. 4. Nonischemic cardiomyopathy. 5. Chronic kidney disease stage 3. 6. Chronic systolic congestive heart failure. 7. Recent placement of new pacemaker leads. 8. Debility. 9. Hypothyroidism. PLAN: The plan at this time is to obtain Cardiology consult with Dr. Horton, as Dr. Pisano does not have privileges at [facility]. We will continue with his telemetry. Because he has been having some issues with low blood pressure, we will discontinue the carvedilol and switch him to metoprolol succinate 50 mg once a day. We will continue with IV Cardizem drip and we will continue with his Entresto. We will also repeat a venous Doppler of the left upper extremity to confirm the left axillary vein thrombosis. We will continue the Eliquis at 10 mg b.i.d. If there is confirmation of the deep vein thrombosis, we will continue with the Eliquis 10 mg b.i.d. through 03/15 and then on 03/16, lower the dose to either 2.5 to 5 mg b.i.d. thereafter. We will continue to immobilize the left upper extremity. We will order physical and occupational therapy. We will continue the Entresto. As mentioned, since he has been having some problems with low blood pressure, we will discontinue the carvedilol and with his tachycardia, also put him on metoprolol succinate 50 mg once a day. We will change his furosemide and potassium chloride to every other day and decrease the Flomax to 0.4 mg at bedtime as he was having some issues with low blood pressure. We will continue with the amiodarone. Repeat his labs including thyroid function tests tomorrow. MYKE CHOUDHURY MD DR: MARIA ESTHER/henry JOB#: [id number] / [id number]
[2017-03-13 10:42] VITALS: BP 119/82
--- NOTE | 2017-03-13 11:58 | PDOC ---
PROGRESS NOTES Subjective Subjective The patient looks and feels better today. Objective Objective Vital Signs Date Time Temp Pulse Resp B/P (MAP) Pulse Ox O2 Delivery O2 Flow Rate FiO2 03/13/17 10:42 97.4 120 19 119/82 (94) 99 Nasal Cannula 2.0 97.4 Intake and Output 03/14/17 07:00 # Voids 1 # Bowel Movements 1 Physical Exam Abdomen: Normal bowel sounds Heart: Regular rate General: mild distress Lungs: Other (slightly decreased breath sounds) Assessment Assessment Problems Medical Problems: (1) Atrial flutter with rapid ventricular response Status: Acute (2) Chronic congestive heart failure Status: Acute (3) Chronic kidney disease, stage III (moderate) Status: Acute ASSESSMENT/PLAN 1. PAFIB RVR: Rate improved but still increased. Beta blockers increased earlier today. 2. ICM with [employer]-d recent redo [facility] 3. Possible LUE DVT. Review testing 4. HTN. Continue medications. 5. Chronic systolic CHF: appears compensated 6. ALESSANDRA on CKD: improved, monitoring lab. Comment Review of Relevant I have reviewed the following items kim (where applicable) has been applied. Labs Laboratory Tests Test 03/11/17 23:35 03/12/17 12:00 03/13/17 04:30 03/13/17 05:10 White Blood Count 3.7 x10^3/uL (4.0-11.0) Red Blood Count 3.47 x10^6/uL (4.30-5.70) Hemoglobin 10.9 g/dL (13.0-17.5) Hematocrit 32.7 % (39.0-53.0) Mean Corpuscular Volume 94 fL (79-100) Mean Corpuscular Hemoglobin 32 pg (25-35) Mean Corpuscular Hemoglobin Concent 34 g/dL (31-37) Red Cell Distribution Width 14.2 % (11.5-14.5) Platelet Count 171 x10^3/uL (140-400) Neutrophils (%) (Auto) 52 % (31-73) Lymphocytes (%) (Auto) 26 % (24-48) Monocytes (%) (Auto) 18 % (0-9) Eosinophils (%) (Auto) 2 % (0-3) Basophils (%) (Auto) 1 % (0-3) Neutrophils # (Auto) 2.0 x10^3uL (1.8-7.7) Lymphocytes # (Auto) 1.0 x10^3/uL (1.0-4.8) Monocytes # (Auto) 0.7 x10^3/uL (0.0-1.1) Eosinophils # (Auto) 0.1 x10^3/uL (0.0-0.7) Basophils # (Auto) 0.0 x10^3/uL (0.0-0.2) Sodium Level 138 mmol/L (136-145) 138 mmol/L (136-145) 140 mmol/L (136-145) Potassium Level 4.2 mmol/L (3.5-5.1) 3.9 mmol/L (3.5-5.1) 3.9 mmol/L (3.5-5.1) Chloride Level 101 mmol/L (98-107) 102 mmol/L (98-107) 103 mmol/L (98-107) Carbon Dioxide Level 31 mmol/L (21-32) 30 mmol/L (21-32) 30 mmol/L (21-32) Anion Gap 6 (6-14) 6 (6-14) 7 (6-14) Blood Urea Nitrogen 40 mg/dL (8-26) 38 mg/dL (8-26) 39 mg/dL (8-26) Creatinine 2.2 mg/dL (0.7-1.3) 2.2 mg/dL (0.7-1.3) 2.1 mg/dL (0.7-1.3) Estimated GFR (Cockcroft-Gault) 35.0 35.0 37.0 BUN/Creatinine Ratio 18 (6-20) Glucose Level 135 mg/dL (70-99) 124 mg/dL (70-99) 101 mg/dL (70-99) Calcium Level 9.2 mg/dL (8.5-10.1) 8.9 mg/dL (8.5-10.1) 9.0 mg/dL (8.5-10.1) Magnesium Level 2.0 mg/dL (1.8-2.4) 1.9 mg/dL (1.8-2.4) 2.1 mg/dL (1.8-2.4) Total Bilirubin 0.7 mg/dL (0.2-1.0) Aspartate Amino Transf (AST/SGOT) 23 U/L (15-37) Alanine Aminotransferase (ALT/SGPT) 23 U/L (16-63) Alkaline Phosphatase 63 U/L (46-116) Creatine Kinase 96 U/L (39-308) Creatine Kinase MB (Mass) 0.6 ng/mL (0.0-3.6) Creatine Kinase MB Relative Index 0.6 % (0-4) Troponin I Quantitative < 0.017 ng/mL (0.000-0.055) GT-Bxm-N-Type Natriuretic Peptide 1927 pg/mL (0-449) Total Protein 7.0 g/dL (6.4-8.2) Albumin 3.3 g/dL (3.4-5.0) Albumin/Globulin Ratio 0.9 (1.0-1.7) Lipase 38 U/L (73-393) Thyroid Stimulating Hormone (TSH) 1.138 uIU/mL (0.358-3.74) Test 03/13/17 05:15 White Blood Count 3.7 x10^3/uL (4.0-11.0) Red Blood Count 3.17 x10^6/uL (4.30-5.70) Hemoglobin 10.0 g/dL (13.0-17.5) Hematocrit 29.7 % (39.0-53.0) Mean Corpuscular Volume 94 fL (79-100) Mean Corpuscular Hemoglobin 32 pg (25-35) Mean Corpuscular Hemoglobin Concent 34 g/dL (31-37) Red Cell Distribution Width 13.9 % (11.5-14.5) Platelet Count 154 x10^3/uL (140-400) Neutrophils (%) (Auto) 49 % (31-73) Lymphocytes (%) (Auto) 30 % (24-48) Monocytes (%) (Auto) 17 % (0-9) Eosinophils (%) (Auto) 3 % (0-3) Basophils (%) (Auto) 1 % (0-3) Neutrophils # (Auto) 1.8 x10^3uL (1.8-7.7) Lymphocytes # (Auto) 1.1 x10^3/uL (1.0-4.8) Monocytes # (Auto) 0.6 x10^3/uL (0.0-1.1) Eosinophils # (Auto) 0.1 x10^3/uL (0.0-0.7) Basophils # (Auto) 0.0 x10^3/uL (0.0-0.2) Laboratory Tests Test 03/12/17 12:00 03/13/17 04:30 03/13/17 05:10 03/13/17 05:15 Sodium Level 138 mmol/L (136-145) 140 mmol/L (136-145) Potassium Level 3.9 mmol/L (3.5-5.1) 3.9 mmol/L (3.5-5.1) Chloride Level 102 mmol/L (98-107) 103 mmol/L (98-107) Carbon Dioxide Level 30 mmol/L (21-32) 30 mmol/L (21-32) Anion Gap 6 (6-14) 7 (6-14) Blood Urea Nitrogen 38 mg/dL (8-26) 39 mg/dL (8-26) Creatinine 2.2 mg/dL (0.7-1.3) 2.1 mg/dL (0.7-1.3) Estimated GFR (Cockcroft-Gault) 35.0 37.0 Glucose Level 124 mg/dL (70-99) 101 mg/dL (70-99) Calcium Level 8.9 mg/dL (8.5-10.1) 9.0 mg/dL (8.5-10.1) Magnesium Level 1.9 mg/dL (1.8-2.4) 2.1 mg/dL (1.8-2.4) Thyroid Stimulating Hormone (TSH) 1.138 uIU/mL (0.358-3.74) White Blood Count 3.7 x10^3/uL (4.0-11.0) Red Blood Count 3.17 x10^6/uL (4.30-5.70) Hemoglobin 10.0 g/dL (13.0-17.5) Hematocrit 29.7 % (39.0-53.0) Mean Corpuscular Volume 94 fL (79-100) Mean Corpuscular Hemoglobin 32 pg (25-35) Mean Corpuscular Hemoglobin Concent 34 g/dL (31-37) Red Cell Distribution Width 13.9 % (11.5-14.5) Platelet Count 154 x10^3/uL (140-400) Neutrophils (%) (Auto) 49 % (31-73) Lymphocytes (%) (Auto) 30 % (24-48) Monocytes (%) (Auto) 17 % (0-9) Eosinophils (%) (Auto) 3 % (0-3) Basophils (%) (Auto) 1 % (0-3) Neutrophils # (Auto) 1.8 x10^3uL (1.8-7.7) Lymphocytes # (Auto) 1.1 x10^3/uL (1.0-4.8) Monocytes # (Auto) 0.6 x10^3/uL (0.0-1.1) Eosinophils # (Auto) 0.1 x10^3/uL (0.0-0.7) Basophils # (Auto) 0.0 x10^3/uL (0.0-0.2) Medications Current Medications Sodium Chloride 1,000 ml @ 100 mls/hr Q10H IV Last administered on 03/12/17 01:00; Start 03/12/17 at 00:00; Stop 03/12/17 at 02:56; Status DC Diltiazem HCl (Cardizem) 20 mg 1X ONCE IVP Last administered on 03/12/17 00: 03; Start 03/12/17 at 00:30; Stop 03/12/17 at 00:31; Status DC Diltiazem HCl 125 mg/Sodium Chloride 125 ml @ 10 mls/hr 1X ONCE IV Last administered on 03/12/17 00:16; Start 03/12/17 at 00:30; Stop 03/12/17 at 10 :25; Status DC Diltiazem HCl (Cardizem) 25 mg STK-MED ONCE .ROUTE ; Start 03/11/17 at 23:59; Stop 03/12/17 at 00:00; Status DC Ondansetron HCl (Zofran) 4 mg PRN Q8HRS PRN IV NAUSEA/VOMITING; Start at 01:15; Stop 03/13/17 at 01:14; Status DC Fentanyl Citrate (Fentanyl 2ml Vial) 50 mcg PRN Q2HR PRN IV SEVERE PAIN; Start 03/12/17 at 01:15; Stop 03/13/17 at 01:14; Status DC Sodium Chloride 1,000 ml @ 30 mls/hr Q24H IV ; Start 03/12/17 at 01:09; Stop 03/13/17 at 01:08; Status DC Acetaminophen (Tylenol) 650 mg PRN Q4HRS PRN PO FEVER; Start 03/12/17 at 01:15 ; Stop 03/12/17 at 09:28; Status DC Info (Do NOT chart on this placeholder) 1 each 1X ONCE MC ; Start 03/12/17 at 02:15; Stop 03/12/17 at 02:16; Status UNV Influenza Virus Vaccine Quadrival (Fluarix Quad [id number] Syringe) 0.5 ml ONCE ONCE VAX IM ; Start 03/12/17 at 09:00; Stop 03/12/17 at 09:01; Status DC Apixaban (Eliquis) 10 mg BID PO ; Start 03/12/17 at 21:00; Stop 03/12/17 at 21 :00; Status DC Metoprolol Succinate (Toprol Xl) 50 mg DAILY PO ; Start 03/12/17 at 10:00; Stop 03/12/17 at 10:25; Status DC Potassium Chloride (Klor-Con) 10 meq QODAY PO ; Start 03/14/17 at 09:00; Stop 03/14/17 at 09:00; Status DC Amiodarone HCl (Cordarone) 200 mg DAILY PO Last administered on 03/13/17 08: 06; Start 03/12/17 at 10:00 Tramadol HCl (Ultram) 50 mg PRN Q6HRS PRN PO PAIN Last administered on 23:42; Start 03/12/17 at 09:15 Acetaminophen (Tylenol) 650 mg PRN Q6HRS PRN PO MILD PAIN / TEMP; Start at 09:15 Magnesium Hydroxide (Milk Of Magnesia) 2,400 mg PRN DAILY PRN PO CONSTIPATION; Start 03/12/17 at 09:15 Furosemide (Lasix) 40 mg QODAY PO ; Start 03/14/17 at 09:00 Levothyroxine Sodium (Synthroid) 75 mcg DAILY07 PO Last administered on 06:40; Start 03/12/17 at 10:00 Pantoprazole Sodium (Protonix) 40 mg DAILYAC PO Last administered on 06:40; Start 03/12/17 at 10:00 Tamsulosin HCl (Flomax) 0.4 mg QHS PO Last administered on 03/12/17 21:08; Start 03/12/17 at 21:00 Dorzolamide HCl (Trusopt) 1 drop BID OS Last administered on 03/13/17 09:36; Start 03/12/17 at 21:00 Sacubitril/ Valsartan (Entresto 24 Mg-26 Mg) 1 tab BID PO ; Start 03/12/17 at 10:00; Stop 03/12/17 at 10:25; Status DC Al Hydroxide/Mg Hydroxide (Mylanta Plus Xs) 30 ml PRN Q2HR PRN PO HEARTBURN / GAS; Start 03/12/17 at 09:15 Latanoprost (Xalatan) 1 drop QHS OU Last administered on 03/12/17 21:08; Start 03/12/17 at 21:00 Apixaban (Eliquis) 2.5 mg BID PO ; Start 03/12/17 at 10:30; Stop 03/12/17 at 10:30; Status DC Metoprolol Succinate (Toprol Xl) 75 mg DAILY PO Last administered on 08:07; Start 03/13/17 at 09:00; Stop 03/13/17 at 09:00; Status DC Digoxin (Lanoxin) 500 mcg 1X ONCE IV Last administered on 03/12/17 12:33; Start 03/12/17 at 12:00; Stop 03/12/17 at 12:01; Status DC Metoprolol Succinate (Toprol Xl) 75 mg 1X ONCE PO Last administered on 16:22; Start 03/12/17 at 16:00; Stop 03/12/17 at 16:01; Status DC Apixaban (Eliquis) 10 mg BID PO Last administered on 03/13/17 08:08; Start 03/12/17 at 16:30 Metoprolol Succinate (Toprol Xl) 100 mg DAILY PO ; Start 03/14/17 at 09:00 Metoprolol Succinate (Toprol Xl) 25 mg 1X ONCE PO Last administered on 09:38; Start 03/13/17 at 09:00; Stop 03/13/17 at 09:01; Status DC Potassium Chloride (Klor-Con) 10 meq DAILY PO Last administered on 03/13/17t 09:37; Start 03/13/17 at 09:30 Active Scripts Active Carvedilol 12.5 Mg Tablet 25 Mg PO BIDWMEALS Amiodarone Hcl 200 Mg Tablet 200 Mg PO DAILY Protonix (Pantoprazole Sodium) 40 Mg Tablet 40 Mg PO DAILYAC Reported Dulcolax (Bisacodyl) 10 Mg Supp.rect 10 Mg RC PRN DAILY PRN Milk Of Magnesia (Magnesium Hydroxide) 2,400 Mg/10 Ml Oral.susp 2,400 Mg PO Protonix (Pantoprazole Sodium) 40 Mg Tablet.dr 1 Tab PO DAILY Tylenol (Acetaminophen) 325 Mg Tablet 1-2 Tab PO QID Tramadol Hcl 50 Mg Tablet 50 Mg PO Q6H PRN Eliquis (Apixaban) 5 Mg Tablet 5 Mg PO BID Potassium Chloride 10 Meq Tablet.er 10 Meq PO DAILY Furosemide 40 Mg Tablet 40 Mg PO DAILY Tamsulosin Hcl 0.4 Mg Cap.er.24h 1 Cap PO BIDAFTMEAL Synthroid (Levothyroxine Sodium) 75 Mcg Tablet 75 Mcg PO DAILYAC Dorzolamide-Timolol Eye Drops (Dorzolamide Hcl/Timolol Maleat) 10 Ml Drops 1 Drop EACHEYE BID Vitals/I & O Vital Sign - Last 24 Hours 03/12/17 03/12/17 03/12/17 03/12/17 12:33 13:37 14:42 16:22 Temp 97.9 97.9 Pulse 112 110 101 120 Resp 19 B/P (MAP) 109/68 141/54 (83) 91/62 (72) 108/72 Pulse Ox 96 O2 Delivery Nasal Cannula O2 Flow Rate 2.0 03/12/17 03/12/17 03/12/17 03/12/17 19:39 20:00 22:51 23:42 Temp 98.3 98.8 98.3 98.8 Pulse 108 108 Resp 19 19 B/P (MAP) 132/88 (103) 142/92 (109) Pulse Ox 96 97 O2 Delivery Nasal Cannula Nasal Cannula Room Air O2 Flow Rate 2.0 2.0 2.0 03/13/17 03/13/17 03/13/17 03/13/17 00:42 02:54 07:00 08:06 Temp 98.4 98.1 98.4 98.1 Pulse 102 93 106 Resp 18 18 B/P (MAP) 123/88 (100) 153/89 (110) 123/88 Pulse Ox 96 99 O2 Delivery Nasal Cannula Nasal Cannula O2 Flow Rate 2.0 2.0 2.0 03/13/17 03/13/17 03/13/17 03/13/17 08:07 08:10 09:38 10:42 Temp 97.4 97.4 Pulse 102 74 120 Resp 19 B/P (MAP) 153/89 119/82 (94) Pulse Ox 99 O2 Delivery Nasal Cannula O2 Flow Rate 2.0 2.0 BABAR CAMPOS MD Mar 13, 2017 11:58
[2017-03-13 15:10] VITALS: BP 114/78
[2017-03-13] MEDS: CALCIUM CARBONATE 500 MG TAB.CHEW PO PRN ×2 (16:43→23:21)
[2017-03-13 19:58] VITALS: BP 121/88
[2017-03-13] MEDS: TAMSULOSIN 0.4 MG CAP.ER.24H. PO SCH (20:35)
[2017-03-13] MEDS: LATANOPROST 0.005% OPHTH SOLUTION 2.5ML BOTTLE. OU SCH (20:35)
[2017-03-13 23:12] VITALS: BP 133/88
[2017-03-13] MEDS: MAG HYDROX/ALUMINUM HYD/SIMETH 30 ML ORAL.SUSP PO PRN (23:25)
[2017-03-14 02:57] VITALS: BP 142/89
[2017-03-14 07:00] VITALS: BP 130/77
--- NOTE | 2017-03-14 08:57 | PDOC ---
PROGRESS NOTES Subjective Subjective had some indigestion eating a meat ball yesterday but okay now. heart rate in low 100s. blood pressure okay and will resume entresto. not short of breath at rest. Objective Objective Vital Signs Date Time Temp Pulse Resp B/P (MAP) Pulse Ox O2 Delivery O2 Flow Rate FiO2 03/14/17 07:00 98.1 108 20 130/77 (94) 99 Nasal Cannula 2.0 98.1 Physical Exam Abdomen: Soft Heart: Normal S1, Normal S2 Extremities: No edema General: Alert HEENT: Atraumatic Lungs: Clear to auscultation Neuro: Normal speech Psych/Mental Status: Mental status NL Skin: No rashes Assessment Assessment Problems Paroxysmal atrial flutter/fibrillation with RVR -VR better but still over 100 Non -ischemic cardiomyopathy. 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 increased dose yesterday continue eliquis continue amiodarone PT and OT await further cardiology recommendations concerning tachycardia Comment Review of Relevant I have reviewed the following items kim (where applicable) has been applied. Labs Laboratory Tests Test 03/12/17 12:00 03/13/17 04:30 03/13/17 05:10 03/13/17 05:15 Sodium Level 138 mmol/L (136-145) 140 mmol/L (136-145) Potassium Level 3.9 mmol/L (3.5-5.1) 3.9 mmol/L (3.5-5.1) Chloride Level 102 mmol/L (98-107) 103 mmol/L (98-107) Carbon Dioxide Level 30 mmol/L (21-32) 30 mmol/L (21-32) Anion Gap 6 (6-14) 7 (6-14) Blood Urea Nitrogen 38 mg/dL (8-26) 39 mg/dL (8-26) Creatinine 2.2 mg/dL (0.7-1.3) 2.1 mg/dL (0.7-1.3) Estimated GFR (Cockcroft-Gault) 35.0 37.0 Glucose Level 124 mg/dL (70-99) 101 mg/dL (70-99) Calcium Level 8.9 mg/dL (8.5-10.1) 9.0 mg/dL (8.5-10.1) Magnesium Level 1.9 mg/dL (1.8-2.4) 2.1 mg/dL (1.8-2.4) Thyroid Stimulating Hormone (TSH) 1.138 uIU/mL (0.358-3.74) White Blood Count 3.7 x10^3/uL (4.0-11.0) Red Blood Count 3.17 x10^6/uL (4.30-5.70) Hemoglobin 10.0 g/dL (13.0-17.5) Hematocrit 29.7 % (39.0-53.0) Mean Corpuscular Volume 94 fL (79-100) Mean Corpuscular Hemoglobin 32 pg (25-35) Mean Corpuscular Hemoglobin Concent 34 g/dL (31-37) Red Cell Distribution Width 13.9 % (11.5-14.5) Platelet Count 154 x10^3/uL (140-400) Neutrophils (%) (Auto) 49 % (31-73) Lymphocytes (%) (Auto) 30 % (24-48) Monocytes (%) (Auto) 17 % (0-9) Eosinophils (%) (Auto) 3 % (0-3) Basophils (%) (Auto) 1 % (0-3) Neutrophils # (Auto) 1.8 x10^3uL (1.8-7.7) Lymphocytes # (Auto) 1.1 x10^3/uL (1.0-4.8) Monocytes # (Auto) 0.6 x10^3/uL (0.0-1.1) Eosinophils # (Auto) 0.1 x10^3/uL (0.0-0.7) Basophils # (Auto) 0.0 x10^3/uL (0.0-0.2) Medications Current Medications Sodium Chloride 1,000 ml @ 100 mls/hr Q10H IV Last administered on 03/12/17t 01:00; Start 03/12/17 at 00:00; Stop 03/12/17 at 02:56; Status DC Diltiazem HCl (Cardizem) 20 mg 1X ONCE IVP Last administered on 03/12/17 00: 03; Start 03/12/17 at 00:30; Stop 03/12/17 at 00:31; Status DC Diltiazem HCl 125 mg/Sodium Chloride 125 ml @ 10 mls/hr 1X ONCE IV Last administered on 03/12/17 00:16; Start 03/12/17 at 00:30; Stop 03/12/17 at 10 :25; Status DC Diltiazem HCl (Cardizem) 25 mg STK-MED ONCE .ROUTE ; Start 03/11/17 at 23:59; Stop 03/12/17 at 00:00; Status DC Ondansetron HCl (Zofran) 4 mg PRN Q8HRS PRN IV NAUSEA/VOMITING; Start at 01:15; Stop 03/13/17 at 01:14; Status DC Fentanyl Citrate (Fentanyl 2ml Vial) 50 mcg PRN Q2HR PRN IV SEVERE PAIN; Start 03/12/17 at 01:15; Stop 03/13/17 at 01:14; Status DC Sodium Chloride 1,000 ml @ 30 mls/hr Q24H IV ; Start 03/12/17 at 01:09; Stop 03/13/17 at 01:08; Status DC Acetaminophen (Tylenol) 650 mg PRN Q4HRS PRN PO FEVER; Start 03/12/17 at 01:15 ; Stop 03/12/17 at 09:28; Status DC Info (Do NOT chart on this placeholder) 1 each 1X ONCE MC ; Start 03/12/17 at 02:15; Stop 03/12/17 at 02:16; Status UNV Influenza Virus Vaccine Quadrival (Fluarix Quad [id number] Syringe) 0.5 ml ONCE ONCE VAX IM Last administered on 03/13/17 18:18; Start 03/12/17 at 09:00; Stop 03/12/17 at 09:01; Status DC Apixaban (Eliquis) 10 mg BID PO ; Start 03/12/17 at 21:00; Stop 03/12/17 at 21 :00; Status DC Metoprolol Succinate (Toprol Xl) 50 mg DAILY PO ; Start 03/12/17 at 10:00; Stop 03/12/17 at 10:25; Status DC Potassium Chloride (Klor-Con) 10 meq QODAY PO ; Start 03/14/17 at 09:00; Stop 03/14/17 at 09:00; Status DC Amiodarone HCl (Cordarone) 200 mg DAILY PO Last administered on 03/13/17 08: 06; Start 03/12/17 at 10:00 Tramadol HCl (Ultram) 50 mg PRN Q6HRS PRN PO PAIN Last administered on 23:42; Start 03/12/17 at 09:15 Acetaminophen (Tylenol) 650 mg PRN Q6HRS PRN PO MILD PAIN / TEMP; Start at 09:15 Magnesium Hydroxide (Milk Of Magnesia) 2,400 mg PRN DAILY PRN PO CONSTIPATION; Start 03/12/17 at 09:15 Furosemide (Lasix) 40 mg QODAY PO ; Start 03/14/17 at 09:00 Levothyroxine Sodium (Synthroid) 75 mcg DAILY07 PO Last administered on 06:40; Start 03/12/17 at 10:00 Pantoprazole Sodium (Protonix) 40 mg DAILYAC PO Last administered on 06:40; Start 03/12/17 at 10:00 Tamsulosin HCl (Flomax) 0.4 mg QHS PO Last administered on 03/13/17 20:35; Start 03/12/17 at 21:00 Dorzolamide HCl (Trusopt) 1 drop BID OS Last administered on 03/13/17 20:35; Start 03/12/17 at 21:00 Sacubitril/ Valsartan (Entresto 24 Mg-26 Mg) 1 tab BID PO ; Start 03/12/17 at 10:00; Stop 03/12/17 at 10:25; Status DC Al Hydroxide/Mg Hydroxide (Mylanta Plus Xs) 30 ml PRN Q2HR PRN PO HEARTBURN / GAS Last administered on 03/13/17 23:25; Start 03/12/17 at 09:15 Latanoprost (Xalatan) 1 drop QHS OU Last administered on 11/12/17at 20:35; Start 03/12/17 at 21:00 Apixaban (Eliquis) 2.5 mg BID PO ; Start 03/12/17 at 10:30; Stop 03/12/17 at 10:30; Status DC Metoprolol Succinate (Toprol Xl) 75 mg DAILY PO Last administered on 08:07; Start 03/13/17 at 09:00; Stop 03/13/17 at 09:00; Status DC Digoxin (Lanoxin) 500 mcg 1X ONCE IV Last administered on 03/12/17 12:33; Start 03/12/17 at 12:00; Stop 03/12/17 at 12:01; Status DC Metoprolol Succinate (Toprol Xl) 75 mg 1X ONCE PO Last administered on 16:22; Start 03/12/17 at 16:00; Stop 03/12/17 at 16:01; Status DC Apixaban (Eliquis) 10 mg BID PO Last administered on 03/13/17 20:35; Start 03/12/17 at 16:30 Metoprolol Succinate (Toprol Xl) 100 mg DAILY PO ; Start 03/14/17 at 09:00 Metoprolol Succinate (Toprol Xl) 25 mg 1X ONCE PO Last administered on 09:38; Start 03/13/17 at 09:00; Stop 03/13/17 at 09:01; Status DC Potassium Chloride (Klor-Con) 10 meq DAILY PO Last administered on 03/13/17 09:37; Start 03/13/17 at 09:30 Calcium Carbonate/ Glycine (Tums) 500 mg PRN Q3HRS PRN PO INDIGESTION Last administered on 03/13/17 23:21; Start 03/13/17 at 16:45 Info (Anti-Coagulation Monitoring By Pharmacy) 1 each PRN DAILY PRN MC SEE COMMENTS; Start 03/14/17 at 07:45 Sacubitril/ Valsartan (Entresto 24 Mg-26 Mg) 1 tab BID PO ; Start 03/14/17 at 09:00 Active Scripts Active Carvedilol 12.5 Mg Tablet 25 Mg PO BIDWMEALS Amiodarone Hcl 200 Mg Tablet 200 Mg PO DAILY Protonix (Pantoprazole Sodium) 40 Mg Tablet 40 Mg PO DAILYAC Reported Dulcolax (Bisacodyl) 10 Mg Supp.rect 10 Mg RC PRN DAILY PRN Milk Of Magnesia (Magnesium Hydroxide) 2,400 Mg/10 Ml Oral.susp 2,400 Mg PO Protonix (Pantoprazole Sodium) 40 Mg Tablet.dr 1 Tab PO DAILY Tylenol (Acetaminophen) 325 Mg Tablet 1-2 Tab PO QID Tramadol Hcl 50 Mg Tablet 50 Mg PO Q6H PRN Eliquis (Apixaban) 5 Mg Tablet 5 Mg PO BID Potassium Chloride 10 Meq Tablet.er 10 Meq PO DAILY Furosemide 40 Mg Tablet 40 Mg PO DAILY Tamsulosin Hcl 0.4 Mg Cap.er.24h 1 Cap PO BIDAFTMEAL Synthroid (Levothyroxine Sodium) 75 Mcg Tablet 75 Mcg PO DAILYAC Dorzolamide-Timolol Eye Drops (Dorzolamide Hcl/Timolol Maleat) 10 Ml Drops 1 Drop EACHEYE BID Vitals/I & O Vital Sign - Last 24 Hours 03/13/17 03/13/17 03/13/17 03/13/17 09:38 10:42 15:10 19:35 Temp 97.4 98.0 97.4 98.0 Pulse 74 120 112 Resp 19 B/P (MAP) 119/82 (94) 114/78 (90) Pulse Ox 99 99 O2 Delivery Nasal Cannula Nasal Cannula Room Air O2 Flow Rate 2.0 2.0 2.0 03/13/17 03/13/17 03/14/17 03/14/17 19:58 23:12 02:57 07:00 Temp 98.2 98.2 98.0 98.1 98.2 98.2 98.0 98.1 Pulse 107 110 114 108 Resp 19 22 20 B/P (MAP) 121/88 (99) 133/88 (103) 142/89 (106) 130/77 (94) Pulse Ox 99 98 96 99 O2 Delivery Nasal Cannula Nasal Cannula Nasal Cannula Nasal Cannula O2 Flow Rate 2.0 2.0 2.0 2.0 MYKE CHOUDHURY MD Mar 14, 2017 08:57
[2017-03-14] MEDS ORDERED: POTASSIUM CHLORIDE 10 MEQ TABLET.ER. PO SCH (09:00)
[2017-03-14] MEDS ORDERED: METOPROLOL SUCC 24HR ER 100 MG TAB.ER.24H. PO SCH (09:00)
[2017-03-14] MEDS: DORZOLAMIDE 2% OPHTH SOLUTION 10ML BOTTLE. OS SCH ×2 (09:15→20:07)
[2017-03-14] MEDS: APIXABAN 5 MG TABLET. PO SCH ×2 (09:15→20:06)
[2017-03-14] MEDS: FUROSEMIDE 40 MG TABLET. PO SCH (09:17)
[2017-03-14] MEDS: POTASSIUM CHLORIDE 10 MEQ TABLET.ER. PO SCH (09:18)
[2017-03-14] MEDS: LEVOTHYROXINE 75 MCG TABLET PO SCH (09:19)
[2017-03-14] MEDS: PANTOPRAZOLE 40 MG TABLET.DR. PO SCH (09:19)
[2017-03-14] MEDS: AMIODARONE HCL 200 MG TABLET. PO SCH (09:21)
[2017-03-14 09:37] LABS: BASO % 1 % (0-3); EOS % 3 % (0-3); HEMATOCRIT 30.9 % (39.0-53.0); HEMOGLOBIN 10.4 g/dL (13.0-17.5); LYMPH # 1.1 x10^3/uL (1.0-4.8); LYMPH % 28 % (24-48); MEAN CORPUSCULAR HEMOGLOBIN 31 pg (25-35); MEAN CORPUSCULAR HGB CONC 34 g/dL (31-37); MEAN CORPUSCULAR VOLUME 93 fL (79-100); MONO % 15 % (0-9); NEUT % 53 % (31-73); PLATELET COUNT 147 x10^3/uL (140-400); RED BLOOD COUNT 3.31 x10^6/uL (4.30-5.70); RED CELL DISTRIBUTION WIDTH 13.8 % (11.5-14.5); WHITE BLOOD COUNT 3.8 x10^3/uL (4.0-11.0)
[2017-03-14 09:53] LABS: CREATININE 2.2 mg/dL (0.7-1.3); MAGNESIUM 2.2 mg/dL (1.8-2.4); POTASSIUM 3.9 mmol/L (3.5-5.1)
[2017-03-14 11:00] VITALS: BP 118/70
[2017-03-14] MEDS: SACUBITRIL/VALSARTAN 24/26MG TABLET. PO SCH ×2 (11:32→20:06)
--- NOTE | 2017-03-14 14:39 | PDOC ---
CARDIO Progress Notes Date and Time Date of Service 03/14/2017 Time of Evaluation 1420 Subjective Subjective: No Chest Pain, No Palpitations, No Dizziness Vitals Vitals Vital Signs Date Time Temp Pulse Resp B/P (MAP) Pulse Ox O2 Delivery O2 Flow Rate FiO2 03/14/17 11:32 114 130/77 03/14/17 11:00 97.9 22 98 Nasal Cannula 2.0 97.9 Weight Weight [ ] Input and Output Intake and Output Intake and Output 03/14/17 07:00 Intake Total 500 ml Output Total 751 ml Balance -251 ml Intake Oral 500 ml Output Urine Total 750 ml Urine/Stool Mix 1 ml # Voids 1 # Bowel Movements 3 Laboratory Labs Laboratory Tests Test 03/14/17 08:40 White Blood Count 3.8 x10^3/uL (4.0-11.0) Red Blood Count 3.31 x10^6/uL (4.30-5.70) Hemoglobin 10.4 g/dL (13.0-17.5) Hematocrit 30.9 % (39.0-53.0) Mean Corpuscular Volume 93 fL (79-100) Mean Corpuscular Hemoglobin 31 pg (25-35) Mean Corpuscular Hemoglobin Concent 34 g/dL (31-37) Red Cell Distribution Width 13.8 % (11.5-14.5) Platelet Count 147 x10^3/uL (140-400) Neutrophils (%) (Auto) 53 % (31-73) Lymphocytes (%) (Auto) 28 % (24-48) Monocytes (%) (Auto) 15 % (0-9) Eosinophils (%) (Auto) 3 % (0-3) Basophils (%) (Auto) 1 % (0-3) Neutrophils # (Auto) 2.0 x10^3uL (1.8-7.7) Lymphocytes # (Auto) 1.1 x10^3/uL (1.0-4.8) Monocytes # (Auto) 0.6 x10^3/uL (0.0-1.1) Eosinophils # (Auto) 0.1 x10^3/uL (0.0-0.7) Basophils # (Auto) 0.0 x10^3/uL (0.0-0.2) Sodium Level 139 mmol/L (136-145) Potassium Level 3.9 mmol/L (3.5-5.1) Chloride Level 102 mmol/L (98-107) Carbon Dioxide Level 28 mmol/L (21-32) Anion Gap 9 (6-14) Blood Urea Nitrogen 35 mg/dL (8-26) Creatinine 2.2 mg/dL (0.7-1.3) Estimated GFR (Cockcroft-Gault) 35.0 Glucose Level 145 mg/dL (70-99) Calcium Level 9.0 mg/dL (8.5-10.1) Magnesium Level 2.2 mg/dL (1.8-2.4) Physical Exam HEENT: Neck Supple W Full Motion Chest: Symmetric Heart: S1S2, irregularly irregular (AFIB) Abdomen: Soft N/T Extremities: No Calf Tenderness, Other (LA edema) Neurology: alert, oriented, follow commands Other Exams left chest AICD site well approximated incision. D/I with steri strips Assessment Assessment 1. PAFIB RVR: Paced with underlying afib. Rate 110s 2. ICM with SENIOR GEOLOGIST-d recent redo [facility] Interrogation with normal device function. No VTs. Notable for AFIB RVR. 3. LUE DVT 4. HTN; controlled 5. Chronic systolic CHF: compensated 6. ALESSANDRA on CKD: baseline? 7. CAD: CP free. Recommendations 1. Continue with optimization, Increase toprol to 150 mg 2. anticoagulation for arm DVT and anticipating to decreased to 2.5 mg in 2 days for stroke prevention as well. BELINDA VILLALPANDO APRN Mar 14, 2017 14:39
[2017-03-14] MEDS ORDERED: METOPROLOL SUCC 24HR ER 25 MG TAB.ER.24H. PO ONE (14:45)
[2017-03-14 15:00] VITALS: BP 134/79
[2017-03-14] MEDS: ANTI-COAG MONITOR BY PHARMACY. MC PRN ×2 (15:30→15:57)
[2017-03-14 19:51] VITALS: BP 134/96
[2017-03-14] MEDS: CALCIUM CARBONATE 500 MG TAB.CHEW PO PRN (20:06)
[2017-03-14] MEDS: TAMSULOSIN 0.4 MG CAP.ER.24H. PO SCH (20:06)
[2017-03-14] MEDS: LATANOPROST 0.005% OPHTH SOLUTION 2.5ML BOTTLE. OU SCH (20:07)
[2017-03-14] MEDS: MAG HYDROX/ALUMINUM HYD/SIMETH 30 ML ORAL.SUSP PO PRN (20:07)
[2017-03-14] MEDS: traMADol 50 MG TABLET PO PRN (20:07)
[2017-03-14 23:22] VITALS: BP 120/79
[2017-03-15] MEDS: ACETAMINOPHEN 325 MG TABLET. PO PRN (01:24)
[2017-03-15 03:46] VITALS: BP 136/91
[2017-03-15 05:45] LABS: CALCIUM 8.9 mg/dL (8.5-10.1); CREATININE 2.4 mg/dL (0.7-1.3); GFR 31.7; MAGNESIUM 2.1 mg/dL (1.8-2.4)
[2017-03-15] MEDS: LEVOTHYROXINE 75 MCG TABLET PO SCH (06:27)
[2017-03-15 07:00] VITALS: BP 141/100
[2017-03-15] MEDS: ANTI-COAG MONITOR BY PHARMACY. MC PRN (08:11)
[2017-03-15] MEDS ORDERED: METOPROLOL SUCC 24HR ER 50 MG TAB.ER.24H. PO SCH (09:00)
[2017-03-15] MEDS: POTASSIUM CHLORIDE 10 MEQ TABLET.ER. PO SCH (09:44)
[2017-03-15] MEDS: PANTOPRAZOLE 40 MG TABLET.DR. PO SCH (09:44)
[2017-03-15] MEDS: DORZOLAMIDE 2% OPHTH SOLUTION 10ML BOTTLE. OS SCH ×2 (09:45→20:13)
[2017-03-15] MEDS: SACUBITRIL/VALSARTAN 24/26MG TABLET. PO SCH ×2 (09:45→20:13)
[2017-03-15] MEDS: APIXABAN 5 MG TABLET. PO SCH ×2 (09:45→20:13)
[2017-03-15] MEDS: MAG HYDROX/ALUMINUM HYD/SIMETH 30 ML ORAL.SUSP PO PRN ×2 (09:45→21:32)
[2017-03-15] MEDS: AMIODARONE HCL 200 MG TABLET. PO SCH (09:48)
[2017-03-15 10:46] VITALS: BP 122/61
--- NOTE | 2017-03-15 11:05 | PDOC ---
PROGRESS NOTES Subjective Subjective feels better. heart rat in low 100s. lab reviewed. metprolol increased to 150 mg daily yesterday. Objective Objective Vital Signs Date Time Temp Pulse Resp B/P (MAP) Pulse Ox O2 Delivery O2 Flow Rate FiO2 03/15/17 10:48 Room Air 03/15/17 10:46 98.4 108 18 122/61 (81) 96 1.0 98.4 Intake and Output 03/15/17 07:00 Intake Total 890 ml Output Total 700 ml Balance 190 ml Intake Oral 890 ml Output Urine Total 700 ml # Voids 5 # Bowel Movements 5 Physical Exam Abdomen: Soft Heart: Normal S1, Normal S2 Extremities: No edema General: Alert HEENT: Atraumatic Lungs: Clear to auscultation Neuro: Normal speech Psych/Mental Status: Mental status NL Skin: No rashes Assessment Assessment ProblemsParoxysmal atrial flutter/fibrillation with RVR -VR better but still over 100 Non -ischemic cardiomyopathy. LVEF 25 to 30% chronic kidney disease stage 3 recent placement of new right ventricular endocardial pacemaker lead and adjust of left ventricular epicardial pacemaker lead at [facility] last week morbid obesity deconditioning hypothyroidism DVT left subclavian and axillary and internal jugular veins Medical Problems: (1) Atrial flutter with rapid ventricular response Status: Acute (2) Chronic congestive heart failure Status: Acute (3) Chronic kidney disease, stage III (moderate) Status: Acute Plan Plan of Care continue metoprolol continue eliquis and decrease dose to 5 mg bid to treat DVT PT and OT Comment Review of Relevant I have reviewed the following items kim (where applicable) has been applied. Labs Laboratory Tests Test 03/14/17 08:40 03/15/17 03:30 White Blood Count 3.8 x10^3/uL (4.0-11.0) Red Blood Count 3.31 x10^6/uL (4.30-5.70) Hemoglobin 10.4 g/dL (13.0-17.5) Hematocrit 30.9 % (39.0-53.0) Mean Corpuscular Volume 93 fL (79-100) Mean Corpuscular Hemoglobin 31 pg (25-35) Mean Corpuscular Hemoglobin Concent 34 g/dL (31-37) Red Cell Distribution Width 13.8 % (11.5-14.5) Platelet Count 147 x10^3/uL (140-400) Neutrophils (%) (Auto) 53 % (31-73) Lymphocytes (%) (Auto) 28 % (24-48) Monocytes (%) (Auto) 15 % (0-9) Eosinophils (%) (Auto) 3 % (0-3) Basophils (%) (Auto) 1 % (0-3) Neutrophils # (Auto) 2.0 x10^3uL (1.8-7.7) Lymphocytes # (Auto) 1.1 x10^3/uL (1.0-4.8) Monocytes # (Auto) 0.6 x10^3/uL (0.0-1.1) Eosinophils # (Auto) 0.1 x10^3/uL (0.0-0.7) Basophils # (Auto) 0.0 x10^3/uL (0.0-0.2) Sodium Level 139 mmol/L (136-145) 139 mmol/L (136-145) Potassium Level 3.9 mmol/L (3.5-5.1) 4.0 mmol/L (3.5-5.1) Chloride Level 102 mmol/L (98-107) 103 mmol/L (98-107) Carbon Dioxide Level 28 mmol/L (21-32) 29 mmol/L (21-32) Anion Gap 9 (6-14) 7 (6-14) Blood Urea Nitrogen 35 mg/dL (8-26) 37 mg/dL (8-26) Creatinine 2.2 mg/dL (0.7-1.3) 2.4 mg/dL (0.7-1.3) Estimated GFR (Cockcroft-Gault) 35.0 31.7 Glucose Level 145 mg/dL (70-99) 125 mg/dL (70-99) Calcium Level 9.0 mg/dL (8.5-10.1) 8.9 mg/dL (8.5-10.1) Magnesium Level 2.2 mg/dL (1.8-2.4) 2.1 mg/dL (1.8-2.4) Laboratory Tests Test 03/15/17 03:30 Sodium Level 139 mmol/L (136-145) Potassium Level 4.0 mmol/L (3.5-5.1) Chloride Level 103 mmol/L (98-107) Carbon Dioxide Level 29 mmol/L (21-32) Anion Gap 7 (6-14) Blood Urea Nitrogen 37 mg/dL (8-26) Creatinine 2.4 mg/dL (0.7-1.3) Estimated GFR (Cockcroft-Gault) 31.7 Glucose Level 125 mg/dL (70-99) Calcium Level 8.9 mg/dL (8.5-10.1) Magnesium Level 2.1 mg/dL (1.8-2.4) Medications Current Medications Sodium Chloride 1,000 ml @ 100 mls/hr Q10H IV Last administered on 03/12/17 01:00; Start 03/12/17 at 00:00; Stop 03/12/17 at 02:56; Status DC Diltiazem HCl (Cardizem) 20 mg 1X ONCE IVP Last administered on 03/12/17 00: 03; Start 03/12/17 at 00:30; Stop 03/12/17 at 00:31; Status DC Diltiazem HCl 125 mg/Sodium Chloride 125 ml @ 10 mls/hr 1X ONCE IV Last administered on 03/12/17 00:16; Start 03/12/17 at 00:30; Stop 03/12/17 at 10 :25; Status DC Diltiazem HCl (Cardizem) 25 mg STK-MED ONCE .ROUTE ; Start 03/11/17 at 23:59; Stop 03/12/17 at 00:00; Status DC Ondansetron HCl (Zofran) 4 mg PRN Q8HRS PRN IV NAUSEA/VOMITING; Start at 01:15; Stop 03/13/17 at 01:14; Status DC Fentanyl Citrate (Fentanyl 2ml Vial) 50 mcg PRN Q2HR PRN IV SEVERE PAIN; Start 03/12/17 at 01:15; Stop 03/13/17 at 01:14; Status DC Sodium Chloride 1,000 ml @ 30 mls/hr Q24H IV ; Start 03/12/17 at 01:09; Stop 03/13/17 at 01:08; Status DC Acetaminophen (Tylenol) 650 mg PRN Q4HRS PRN PO FEVER; Start 03/12/17 at 01:15 ; Stop 03/12/17 at 09:28; Status DC Info (Do NOT chart on this placeholder) 1 each 1X ONCE MC ; Start 03/12/17 at 02:15; Stop 03/12/17 at 02:16; Status UNV Influenza Virus Vaccine Quadrival (Fluarix Quad [id number] Syringe) 0.5 ml ONCE ONCE VAX IM Last administered on 03/13/17 18:18; Start 03/12/17 at 09:00; Stop 03/12/17 at 09:01; Status DC Apixaban (Eliquis) 10 mg BID PO ; Start 03/12/17 at 21:00; Stop 03/12/17 at 21 :00; Status DC Metoprolol Succinate (Toprol Xl) 50 mg DAILY PO ; Start 03/12/17 at 10:00; Stop 03/12/17 at 10:25; Status DC Potassium Chloride (Klor-Con) 10 meq QODAY PO ; Start 03/14/17 at 09:00; Stop 03/14/17 at 09:00; Status DC Amiodarone HCl (Cordarone) 200 mg DAILY PO Last administered on 03/15/17 09: 48; Start 03/12/17 at 10:00 Tramadol HCl (Ultram) 50 mg PRN Q6HRS PRN PO PAIN Last administered on 20:07; Start 03/12/17 at 09:15 Acetaminophen (Tylenol) 650 mg PRN Q6HRS PRN PO MILD PAIN / TEMP Last administered on 03/15/17 01:24; Start 03/12/17 at 09:15 Magnesium Hydroxide (Milk Of Magnesia) 2,400 mg PRN DAILY PRN PO CONSTIPATION; Start 03/12/17 at 09:15 Furosemide (Lasix) 40 mg QODAY PO Last administered on 03/14/17 09:17; Start 03/14/17 at 09:00 Levothyroxine Sodium (Synthroid) 75 mcg DAILY07 PO Last administered on 06:27; Start 03/12/17 at 10:00 Pantoprazole Sodium (Protonix) 40 mg DAILYAC PO Last administered on 09:44; Start 03/12/17 at 10:00 Tamsulosin HCl (Flomax) 0.4 mg QHS PO Last administered on 03/14/17 20:06; Start 03/12/17 at 21:00 Dorzolamide HCl (Trusopt) 1 drop BID OS Last administered on 03/15/17 09:45; Start 03/12/17 at 21:00 Sacubitril/ Valsartan (Entresto 24 Mg-26 Mg) 1 tab BID PO ; Start 03/12/17 at 10:00; Stop 03/12/17 at 10:25; Status DC Al Hydroxide/Mg Hydroxide (Mylanta Plus Xs) 30 ml PRN Q2HR PRN PO HEARTBURN / GAS Last administered on 03/15/17 09:45; Start 03/12/17 at 09:15 Latanoprost (Xalatan) 1 drop QHS OU Last administered on 03/14/17 20:07; Start 03/12/17 at 21:00 Apixaban (Eliquis) 2.5 mg BID PO ; Start 03/12/17 at 10:30; Stop 03/12/17 at 10:30; Status DC Metoprolol Succinate (Toprol Xl) 75 mg DAILY PO Last administered on 08:07; Start 03/13/17 at 09:00; Stop 03/13/17 at 09:00; Status DC Digoxin (Lanoxin) 500 mcg 1X ONCE IV Last administered on 03/12/17 12:33; Start 03/12/17 at 12:00; Stop 03/12/17 at 12:01; Status DC Metoprolol Succinate (Toprol Xl) 75 mg 1X ONCE PO Last administered on 16:22; Start 03/12/17 at 16:00; Stop 03/12/17 at 16:01; Status DC Apixaban (Eliquis) 10 mg BID PO Last administered on 03/15/17 09:45; Start 03/12/17 at 16:30; Stop 03/15/17 at 21:00 Metoprolol Succinate (Toprol Xl) 100 mg DAILY PO Last administered on 09:16; Start 03/14/17 at 09:00; Stop 03/14/17 at 14:34; Status DC Metoprolol Succinate (Toprol Xl) 25 mg 1X ONCE PO Last administered on 09:38; Start 03/13/17 at 09:00; Stop 03/13/17 at 09:01; Status DC Potassium Chloride (Klor-Con) 10 meq DAILY PO Last administered on 03/15/17 09:44; Start 03/13/17 at 09:30 Calcium Carbonate/ Glycine (Tums) 500 mg PRN Q3HRS PRN PO INDIGESTION Last administered on 03/14/17 20:06; Start 03/13/17 at 16:45 Info (Anti-Coagulation Monitoring By Pharmacy) 1 each PRN DAILY PRN MC SEE COMMENTS Last administered on 03/15/17 08:11; Start 03/14/17 at 07:45 Sacubitril/ Valsartan (Entresto 24 Mg-26 Mg) 1 tab BID PO Last administered on 03/15/17 09:45; Start 03/14/17 at 09:00 Metoprolol Succinate (Toprol Xl) 150 mg DAILY PO Last administered on 09:44; Start 03/15/17 at 09:00 Metoprolol Succinate (Toprol Xl) 50 mg 1X ONCE PO Last administered on 16:21; Start 03/14/17 at 14:45; Stop 03/14/17 at 14:46; Status DC Apixaban (Eliquis) 5 mg BID PO ; Start 03/16/17 at 09:00 Active Scripts Active Carvedilol 12.5 Mg Tablet 25 Mg PO BIDWMEALS Amiodarone Hcl 200 Mg Tablet 200 Mg PO DAILY Protonix (Pantoprazole Sodium) 40 Mg Tablet 40 Mg PO DAILYAC Reported Dulcolax (Bisacodyl) 10 Mg Supp.rect 10 Mg RC PRN DAILY PRN Milk Of Magnesia (Magnesium Hydroxide) 2,400 Mg/10 Ml Oral.susp 2,400 Mg PO Protonix (Pantoprazole Sodium) 40 Mg Tablet.dr 1 Tab PO DAILY Tylenol (Acetaminophen) 325 Mg Tablet 1-2 Tab PO QID Tramadol Hcl 50 Mg Tablet 50 Mg PO Q6H PRN Eliquis (Apixaban) 5 Mg Tablet 5 Mg PO BID Potassium Chloride 10 Meq Tablet.er 10 Meq PO DAILY Furosemide 40 Mg Tablet 40 Mg PO DAILY Tamsulosin Hcl 0.4 Mg Cap.er.24h 1 Cap PO BIDAFTMEAL Synthroid (Levothyroxine Sodium) 75 Mcg Tablet 75 Mcg PO DAILYAC Dorzolamide-Timolol Eye Drops (Dorzolamide Hcl/Timolol Maleat) 10 Ml Drops 1 Drop EACHEYE BID Vitals/I & O Vital Sign - Last 24 Hours 03/14/17 03/14/17 03/14/17 03/14/17 11:32 15:00 16:21 19:51 Temp 98.0 98.5 98.0 98.5 Pulse 114 107 107 117 Resp 22 16 B/P (MAP) 130/77 134/79 (97) 134/79 134/96 (109) Pulse Ox 97 99 O2 Delivery Nasal Cannula Nasal Cannula O2 Flow Rate 2.0 2.0 03/14/17 03/14/17 03/14/17 03/14/17 20:00 20:06 20:07 21:07 Pulse 117 B/P (MAP) 134/96 O2 Delivery Room Air Room Air Room Air 03/14/17 03/15/17 03/15/17 03/15/17 23:22 03:46 07:00 08:00 Temp 97.8 98.7 97.7 97.8 98.7 97.7 Pulse 122 128 107 Resp 18 18 18 B/P (MAP) 120/79 (93) 136/91 (106) 141/100 (114) Pulse Ox 99 98 97 O2 Delivery Nasal Cannula Nasal Cannula Nasal Cannula Room Air O2 Flow Rate 2.0 2.0 2.0 03/15/17 03/15/17 03/15/17 03/15/17 09:44 09:45 09:48 10:46 Temp 98.4 98.4 Pulse 107 107 107 108 Resp 18 B/P (MAP) 141/100 141/100 141/100 122/61 (81) Pulse Ox 96 O2 Delivery Nasal Cannula O2 Flow Rate 1.0 03/15/17 10:48 O2 Delivery Room Air Intake and Output 03/14/17 03/14/17 03/15/17 15:00 23:00 07:00 Intake Total 650 ml 240 ml Output Total 300 ml 400 ml Balance -300 ml 250 ml 240 ml MYKE CHOUDHURY MD Mar 15, 2017 11:05
--- NOTE | 2017-03-15 11:41 | PDOC ---
CARDIO Progress Notes Date and Time Date of Service 03/15/2017 Time of Evaluation 1120 Subjective Subjective: No Chest Pain, Other ([place] ROS[place]) Vitals Vitals Vital Signs Date Time Temp Pulse Resp B/P (MAP) Pulse Ox O2 Delivery O2 Flow Rate FiO2 03/15/17 10:48 Room Air 03/15/17 10:46 98.4 108 18 122/61 (81) 96 1.0 98.4 Weight Weight [ ] Input and Output Intake and Output Intake and Output 03/15/17 07:00 Intake Total 890 ml Output Total 700 ml Balance 190 ml Intake Oral 890 ml Output Urine Total 700 ml # Voids 5 # Bowel Movements 5 Laboratory Labs Laboratory Tests Test 03/15/17 03:30 Sodium Level 139 mmol/L (136-145) Potassium Level 4.0 mmol/L (3.5-5.1) Chloride Level 103 mmol/L (98-107) Carbon Dioxide Level 29 mmol/L (21-32) Anion Gap 7 (6-14) Blood Urea Nitrogen 37 mg/dL (8-26) Creatinine 2.4 mg/dL (0.7-1.3) Estimated GFR (Cockcroft-Gault) 31.7 Glucose Level 125 mg/dL (70-99) Calcium Level 8.9 mg/dL (8.5-10.1) Magnesium Level 2.1 mg/dL (1.8-2.4) Physical Exam HEENT: Neck Supple W Full Motion Chest: Symmetric LUNGS: Other (diminished bases) Heart: S1S2, irregularly irregular (AFIB) Abdomen: Soft N/T Extremities: No Calf Tenderness, Other (LA edema) Neurology: alert, oriented, follow commands Assessment Assessment 1. PAFIB RVR: Paced with underlying afib. CP free with [place]. Rate remains 110s after several increased in BB. PE would be part of differential given his LUE DVT 2. ICM with [employer]-d recent redo [facility] Recent interrogation with normal device function. No VTs. Notable for AFIB RVR. Will recheck with device rep. again 3. LUE DVT 4. HTN; controlled 5. Chronic systolic CHF: compensated 6. CKD4? 7. CAD: CP free. Recommendations 1. Continue with optimization, Continue with secondary prevention and current dosing of torpol. will consider uptitrating dose pending testing. 2. Anticoagulation for arm DVT and anticipating to decreased to 2.5 mg in 2 days for stroke prevention as well. 3. Will reinterrogate device today BELINDA VILLALPANDO APRN Mar 15, 2017 11:40
[2017-03-15 15:00] VITALS: BP 113/74
--- NOTE | 2017-03-15 16:10 | RAD ---
Ventilation/perfusion lung scan, 03/15/2017: History: DVT, tachycardia The ventilation study was performed utilizing 24 mCi of xenon-133. There is heterogeneous activity in the lungs with moderate patchy retention in the right base and left upper lobe on the washout phase. Perfusion imaging was performed utilizing 6.6 mCi of technetium 99m MAA. A similar pattern of activity is present in the lungs. No significant unmatched or segmental perfusion defects are seen. IMPRESSION: The probability of pulmonary emboli is considered to be low.
[2017-03-15] MEDS ORDERED: METOPROLOL SUCC 24HR ER 25 MG TAB.ER.24H. PO ONE (16:15)
[2017-03-15 19:42] VITALS: BP 112/71
[2017-03-15] MEDS: TAMSULOSIN 0.4 MG CAP.ER.24H. PO SCH (20:12)
[2017-03-15] MEDS: LATANOPROST 0.005% OPHTH SOLUTION 2.5ML BOTTLE. OU SCH (20:13)
[2017-03-15] MEDS: traMADol 50 MG TABLET PO PRN (21:32)
[2017-03-15] MEDS: CALCIUM CARBONATE 500 MG TAB.CHEW PO PRN (21:32)
[2017-03-15 23:27] VITALS: BP 147/102
[2017-03-16 02:00] VITALS: BP 131/92
[2017-03-16 05:22] LABS: BASO % 1 % (0-3); EOS % 3 % (0-3); HEMATOCRIT 29.7 % (39.0-53.0); HEMOGLOBIN 9.9 g/dL (13.0-17.5); LYMPH % 28 % (24-48); MEAN CORPUSCULAR HEMOGLOBIN 31 pg (25-35); MEAN CORPUSCULAR HGB CONC 33 g/dL (31-37); MEAN CORPUSCULAR VOLUME 94 fL (79-100); MONO % 14 % (0-9); NEUT % 54 % (31-73); PLATELET COUNT 141 x10^3/uL (140-400); RED BLOOD COUNT 3.18 x10^6/uL (4.30-5.70); RED CELL DISTRIBUTION WIDTH 13.9 % (11.5-14.5); WHITE BLOOD COUNT 3.6 x10^3/uL (4.0-11.0)
[2017-03-16 05:28] LABS: CALCIUM 8.7 mg/dL (8.5-10.1); CREATININE 2.4 mg/dL (0.7-1.3); GFR 31.7; POTASSIUM 4.2 mmol/L (3.5-5.1)
[2017-03-16] MEDS: LEVOTHYROXINE 75 MCG TABLET PO SCH (06:13)
[2017-03-16 07:00] VITALS: BP 132/72
[2017-03-16] MEDS: PANTOPRAZOLE 40 MG TABLET.DR. PO SCH (07:47)
[2017-03-16] MEDS: DORZOLAMIDE 2% OPHTH SOLUTION 10ML BOTTLE. OS SCH ×2 (08:43→21:05)
[2017-03-16] MEDS: AMIODARONE HCL 200 MG TABLET. PO SCH ×3 (08:44→21:04)
[2017-03-16] MEDS: POTASSIUM CHLORIDE 10 MEQ TABLET.ER. PO SCH (08:44)
[2017-03-16] MEDS: FUROSEMIDE 40 MG TABLET. PO SCH (08:44)
[2017-03-16] MEDS: APIXABAN 5 MG TABLET. PO SCH ×2 (08:45→21:04)
[2017-03-16] MEDS: METOPROLOL SUCC 24HR ER 100 MG TAB.ER.24H. PO SCH (08:45)
[2017-03-16] MEDS: SACUBITRIL/VALSARTAN 24/26MG TABLET. PO SCH ×2 (08:46→21:04)
--- NOTE | 2017-03-16 09:59 | PDOC ---
PROGRESS NOTES Subjective Subjective feels okay. discussed with cardiology [employer] who notes continued tachycardia and metoprolol increased today. V/Q scan neg for PE. has indigestion at hs and will order famotidine at hs and takes protonix in morning and prn antacids. Objective Objective Vital Signs Date Time Temp Pulse Resp B/P (MAP) Pulse Ox O2 Delivery O2 Flow Rate FiO2 03/16/17 08:46 70 132/72 03/16/17 07:00 97.7 18 96 Nasal Cannula 2.0 97.7 Intake and Output 03/16/17 07:00 Intake Total 400 ml Output Total 400 ml Balance 0 ml Intake Oral 400 ml Output Urine Total 400 ml # Voids 4 # Bowel Movements 4 Physical Exam Abdomen: Soft Heart: Normal S1, Normal S2 Extremities: No edema General: Alert HEENT: Atraumatic Lungs: Clear to auscultation Neuro: Normal speech Psych/Mental Status: Mental status NL Skin: No rashes Assessment Assessment ProblemsParoxysmal atrial flutter/fibrillation with RVR -VR better but still over 100 Non -ischemic cardiomyopathy. LVEF 25 to 30% chronic kidney disease stage 3 recent placement of new right ventricular endocardial pacemaker lead and adjust of left ventricular epicardial pacemaker lead at [facility] last week morbid obesity deconditioning hypothyroidism DVT left subclavian and axillary and internal jugular veins tachycardia GERD Medical Problems: (1) Atrial flutter with rapid ventricular response Status: Acute (2) Chronic congestive heart failure Status: Acute (3) Chronic kidney disease, stage III (moderate) Status: Acute Plan Plan of Care increase metoprolol start famotidine at hs and continue protonix in am and prn antacids telemetry continue eliquis PT and OT Comment Review of Relevant I have reviewed the following items kim (where applicable) has been applied. Labs Laboratory Tests Test 03/15/17 03:30 03/16/17 04:30 Sodium Level 139 mmol/L (136-145) 136 mmol/L (136-145) Potassium Level 4.0 mmol/L (3.5-5.1) 4.2 mmol/L (3.5-5.1) Chloride Level 103 mmol/L (98-107) 102 mmol/L (98-107) Carbon Dioxide Level 29 mmol/L (21-32) 31 mmol/L (21-32) Anion Gap 7 (6-14) 3 (6-14) Blood Urea Nitrogen 37 mg/dL (8-26) 36 mg/dL (8-26) Creatinine 2.4 mg/dL (0.7-1.3) 2.4 mg/dL (0.7-1.3) Estimated GFR (Cockcroft-Gault) 31.7 31.7 Glucose Level 125 mg/dL (70-99) 106 mg/dL (70-99) Calcium Level 8.9 mg/dL (8.5-10.1) 8.7 mg/dL (8.5-10.1) Magnesium Level 2.1 mg/dL (1.8-2.4) White Blood Count 3.6 x10^3/uL (4.0-11.0) Red Blood Count 3.18 x10^6/uL (4.30-5.70) Hemoglobin 9.9 g/dL (13.0-17.5) Hematocrit 29.7 % (39.0-53.0) Mean Corpuscular Volume 94 fL (79-100) Mean Corpuscular Hemoglobin 31 pg (25-35) Mean Corpuscular Hemoglobin Concent 33 g/dL (31-37) Red Cell Distribution Width 13.9 % (11.5-14.5) Platelet Count 141 x10^3/uL (140-400) Neutrophils (%) (Auto) 54 % (31-73) Lymphocytes (%) (Auto) 28 % (24-48) Monocytes (%) (Auto) 14 % (0-9) Eosinophils (%) (Auto) 3 % (0-3) Basophils (%) (Auto) 1 % (0-3) Neutrophils # (Auto) 1.9 x10^3uL (1.8-7.7) Lymphocytes # (Auto) 1.0 x10^3/uL (1.0-4.8) Monocytes # (Auto) 0.5 x10^3/uL (0.0-1.1) Eosinophils # (Auto) 0.1 x10^3/uL (0.0-0.7) Basophils # (Auto) 0.0 x10^3/uL (0.0-0.2) Laboratory Tests Test 03/16/17 04:30 White Blood Count 3.6 x10^3/uL (4.0-11.0) Red Blood Count 3.18 x10^6/uL (4.30-5.70) Hemoglobin 9.9 g/dL (13.0-17.5) Hematocrit 29.7 % (39.0-53.0) Mean Corpuscular Volume 94 fL (79-100) Mean Corpuscular Hemoglobin 31 pg (25-35) Mean Corpuscular Hemoglobin Concent 33 g/dL (31-37) Red Cell Distribution Width 13.9 % (11.5-14.5) Platelet Count 141 x10^3/uL (140-400) Neutrophils (%) (Auto) 54 % (31-73) Lymphocytes (%) (Auto) 28 % (24-48) Monocytes (%) (Auto) 14 % (0-9) Eosinophils (%) (Auto) 3 % (0-3) Basophils (%) (Auto) 1 % (0-3) Neutrophils # (Auto) 1.9 x10^3uL (1.8-7.7) Lymphocytes # (Auto) 1.0 x10^3/uL (1.0-4.8) Monocytes # (Auto) 0.5 x10^3/uL (0.0-1.1) Eosinophils # (Auto) 0.1 x10^3/uL (0.0-0.7) Basophils # (Auto) 0.0 x10^3/uL (0.0-0.2) Sodium Level 136 mmol/L (136-145) Potassium Level 4.2 mmol/L (3.5-5.1) Chloride Level 102 mmol/L (98-107) Carbon Dioxide Level 31 mmol/L (21-32) Anion Gap 3 (6-14) Blood Urea Nitrogen 36 mg/dL (8-26) Creatinine 2.4 mg/dL (0.7-1.3) Estimated GFR (Cockcroft-Gault) 31.7 Glucose Level 106 mg/dL (70-99) Calcium Level 8.7 mg/dL (8.5-10.1) Medications Current Medications Sodium Chloride 1,000 ml @ 100 mls/hr Q10H IV Last administered on 03/12/17t 01:00; Start 03/12/17 at 00:00; Stop 03/12/17 at 02:56; Status DC Diltiazem HCl (Cardizem) 20 mg 1X ONCE IVP Last administered on 03/12/17t 00: 03; Start 03/12/17 at 00:30; Stop 03/12/17 at 00:31; Status DC Diltiazem HCl 125 mg/Sodium Chloride 125 ml @ 10 mls/hr 1X ONCE IV Last administered on 03/12/17t 00:16; Start 03/12/17 at 00:30; Stop 03/12/17 at 10 :25; Status DC Diltiazem HCl (Cardizem) 25 mg STK-MED ONCE .ROUTE ; Start 03/11/17 at 23:59; Stop 03/12/17 at 00:00; Status DC Ondansetron HCl (Zofran) 4 mg PRN Q8HRS PRN IV NAUSEA/VOMITING; Start at 01:15; Stop 03/13/17 at 01:14; Status DC Fentanyl Citrate (Fentanyl 2ml Vial) 50 mcg PRN Q2HR PRN IV SEVERE PAIN; Start 03/12/17 at 01:15; Stop 03/13/17 at 01:14; Status DC Sodium Chloride 1,000 ml @ 30 mls/hr Q24H IV ; Start 03/12/17 at 01:09; Stop 03/13/17 at 01:08; Status DC Acetaminophen (Tylenol) 650 mg PRN Q4HRS PRN PO FEVER; Start 03/12/17 at 01:15 ; Stop 03/12/17 at 09:28; Status DC Info (Do NOT chart on this placeholder) 1 each 1X ONCE MC ; Start 03/12/17 at 02:15; Stop 03/12/17 at 02:16; Status UNV Influenza Virus Vaccine Quadrival (Fluarix Quad [id number] Syringe) 0.5 ml ONCE ONCE VAX IM Last administered on 03/13/17t 18:18; Start 03/12/17 at 09:00; Stop 03/12/17 at 09:01; Status DC Apixaban (Eliquis) 10 mg BID PO ; Start 03/12/17 at 21:00; Stop 03/12/17 at 21 :00; Status DC Metoprolol Succinate (Toprol Xl) 50 mg DAILY PO ; Start 03/12/17 at 10:00; Stop 03/12/17 at 10:25; Status DC Potassium Chloride (Klor-Con) 10 meq QODAY PO ; Start 03/14/17 at 09:00; Stop 03/14/17 at 09:00; Status DC Amiodarone HCl (Cordarone) 200 mg DAILY PO Last administered on 03/16/17 08: 44; Start 03/12/17 at 10:00 Tramadol HCl (Ultram) 50 mg PRN Q6HRS PRN PO PAIN Last administered on 21:32; Start 03/12/17 at 09:15 Acetaminophen (Tylenol) 650 mg PRN Q6HRS PRN PO MILD PAIN / TEMP Last administered on 03/15/17 01:24; Start 03/12/17 at 09:15 Magnesium Hydroxide (Milk Of Magnesia) 2,400 mg PRN DAILY PRN PO CONSTIPATION; Start 03/12/17 at 09:15 Furosemide (Lasix) 40 mg QODAY PO Last administered on 03/16/17 08:44; Start 03/14/17 at 09:00 Levothyroxine Sodium (Synthroid) 75 mcg DAILY07 PO Last administered on 06:13; Start 03/12/17 at 10:00 Pantoprazole Sodium (Protonix) 40 mg DAILYAC PO Last administered on 07:47; Start 03/12/17 at 10:00 Tamsulosin HCl (Flomax) 0.4 mg QHS PO Last administered on 03/15/17 20:12; Start 03/12/17 at 21:00 Dorzolamide HCl (Trusopt) 1 drop BID OS Last administered on 03/16/17 08:43; Start 03/12/17 at 21:00 Sacubitril/ Valsartan (Entresto 24 Mg-26 Mg) 1 tab BID PO ; Start 03/12/17 at 10:00; Stop 03/12/17 at 10:25; Status DC Al Hydroxide/Mg Hydroxide (Mylanta Plus Xs) 30 ml PRN Q2HR PRN PO HEARTBURN / GAS Last administered on 03/15/17 21:32; Start 03/12/17 at 09:15 Latanoprost (Xalatan) 1 drop QHS OU Last administered on 03/15/17 20:13; Start 03/12/17 at 21:00 Apixaban (Eliquis) 2.5 mg BID PO ; Start 03/12/17 at 10:30; Stop 03/12/17 at 10:30; Status DC Metoprolol Succinate (Toprol Xl) 75 mg DAILY PO Last administered on 08:07; Start 03/13/17 at 09:00; Stop 03/13/17 at 09:00; Status DC Digoxin (Lanoxin) 500 mcg 1X ONCE IV Last administered on 03/12/17 12:33; Start 03/12/17 at 12:00; Stop 03/12/17 at 12:01; Status DC Metoprolol Succinate (Toprol Xl) 75 mg 1X ONCE PO Last administered on 16:22; Start 03/12/17 at 16:00; Stop 03/12/17 at 16:01; Status DC Apixaban (Eliquis) 10 mg BID PO Last administered on 03/15/17 20:13; Start 03/12/17 at 16:30; Stop 03/15/17 at 21:00; Status DC Metoprolol Succinate (Toprol Xl) 100 mg DAILY PO Last administered on 09:16; Start 03/14/17 at 09:00; Stop 03/14/17 at 14:34; Status DC Metoprolol Succinate (Toprol Xl) 25 mg 1X ONCE PO Last administered on 09:38; Start 03/13/17 at 09:00; Stop 03/13/17 at 09:01; Status DC Potassium Chloride (Klor-Con) 10 meq DAILY PO Last administered on 03/16/17 08:44; Start 03/13/17 at 09:30 Calcium Carbonate/ Glycine (Tums) 500 mg PRN Q3HRS PRN PO INDIGESTION Last administered on 03/15/17 21:32; Start 03/13/17 at 16:45 Info (Anti-Coagulation Monitoring By Pharmacy) 1 each PRN DAILY PRN MC SEE COMMENTS Last administered on 03/15/17 08:11; Start 03/14/17 at 07:45 Sacubitril/ Valsartan (Entresto 24 Mg-26 Mg) 1 tab BID PO Last administered on 03/16/17 08:46; Start 03/14/17 at 09:00 Metoprolol Succinate (Toprol Xl) 150 mg DAILY PO Last administered on 09:44; Start 03/15/17 at 09:00; Stop 03/15/17 at 16:14; Status DC Metoprolol Succinate (Toprol Xl) 50 mg 1X ONCE PO Last administered on 16:21; Start 03/14/17 at 14:45; Stop 03/14/17 at 14:46; Status DC Apixaban (Eliquis) 5 mg BID PO Last administered on 03/16/17 08:45; Start at 09:00 Metoprolol Succinate (Toprol Xl) 200 mg DAILY PO Last administered on 08:45; Start 03/16/17 at 09:00 Metoprolol Succinate (Toprol Xl) 50 mg 1X ONCE PO Last administered on 17:37; Start 03/15/17 at 16:15; Stop 03/15/17 at 16:16; Status DC Active Scripts Active Carvedilol 12.5 Mg Tablet 25 Mg PO BIDWMEALS Amiodarone Hcl 200 Mg Tablet 200 Mg PO DAILY Protonix (Pantoprazole Sodium) 40 Mg Tablet 40 Mg PO DAILYAC Reported Dulcolax (Bisacodyl) 10 Mg Supp.rect 10 Mg RC PRN DAILY PRN Milk Of Magnesia (Magnesium Hydroxide) 2,400 Mg/10 Ml Oral.susp 2,400 Mg PO Protonix (Pantoprazole Sodium) 40 Mg Tablet.dr 1 Tab PO DAILY Tylenol (Acetaminophen) 325 Mg Tablet 1-2 Tab PO QID Tramadol Hcl 50 Mg Tablet 50 Mg PO Q6H PRN Eliquis (Apixaban) 5 Mg Tablet 5 Mg PO BID Potassium Chloride 10 Meq Tablet.er 10 Meq PO DAILY Furosemide 40 Mg Tablet 40 Mg PO DAILY Tamsulosin Hcl 0.4 Mg Cap.er.24h 1 Cap PO BIDAFTMEAL Synthroid (Levothyroxine Sodium) 75 Mcg Tablet 75 Mcg PO DAILYAC Dorzolamide-Timolol Eye Drops (Dorzolamide Hcl/Timolol Maleat) 10 Ml Drops 1 Drop EACHEYE BID Vitals/I & O Vital Sign - Last 24 Hours 03/15/17 03/15/17 03/15/17/14/17 10:46 10:48 11:00 15:00 Temp 98.4 98.1 98.4 98.1 Pulse 108 114 Resp 18 19 B/P (MAP) 122/61 (81) 113/74 (87) Pulse Ox 96 100 O2 Delivery Nasal Cannula Room Air Nasal Cannula Nasal Cannula O2 Flow Rate 1.0 2.0 1.0 03/15/17 03/15/17 03/15/17 03/15/17 17:37 19:42 19:45 20:13 Temp 98.7 98.7 Pulse 114 129 129 Resp 18 B/P (MAP) 113/74 112/71 (85) 112/71 Pulse Ox 98 O2 Delivery Nasal Cannula Nasal Cannula O2 Flow Rate 2.0 2.0 03/15/17 03/15/17 03/15/17 03/16/17 21:32 22:32 23:27 02:00 Temp 99.0 97.7 99.0 97.7 Pulse 130 128 Resp 20 18 B/P (MAP) 147/102 (117) 131/92 (105) Pulse Ox 98 97 O2 Delivery Nasal Cannula Nasal Cannula Nasal Cannula Nasal Cannula O2 Flow Rate 2.0 2.0 2.0 2.0 03/16/17 03/16/17 03/16/17 03/16/17 07:00 08:44 08:45 08:46 Temp 97.7 97.7 Pulse 70 70 70 70 Resp 18 B/P (MAP) 132/72 (92) 132/72 132/72 132/72 Pulse Ox 96 O2 Delivery Nasal Cannula O2 Flow Rate 2.0 Intake and Output 03/15/17 03/15/17 03/16/17 15:00 23:00 07:00 Intake Total 400 ml Output Total 400 ml Balance 0 ml MYKE CHOUDHURY MD Mar 16, 2017 09:59
[2017-03-16] MEDS: ANTI-COAG MONITOR BY PHARMACY. MC PRN (11:15)
[2017-03-16 11:42] VITALS: BP 117/65
--- NOTE | 2017-03-16 11:53 | PDOC ---
BELINDA VILLALPANDO NATURAL RESOURCES PROFESSOR 03/16/17 1153: CARDIO Progress Notes Date and Time Date of Service 03/16/2017 Time of Evaluation 1140 Subjective Subjective: No Chest Pain, No shortness of breath, No Palpitations Vitals Vitals Vital Signs Date Time Temp Pulse Resp B/P (MAP) Pulse Ox O2 Delivery O2 Flow Rate FiO2 03/16/17 08:46 70 132/72 03/16/17 07:00 97.7 18 96 Nasal Cannula 2.0 97.7 Weight Weight [ ] Input and Output Intake and Output Intake and Output 03/16/17 07:00 Intake Total 400 ml Output Total 400 ml Balance 0 ml Intake Oral 400 ml Output Urine Total 400 ml # Voids 4 # Bowel Movements 4 Laboratory Labs Laboratory Tests Test 03/16/17 04:30 White Blood Count 3.6 x10^3/uL (4.0-11.0) Red Blood Count 3.18 x10^6/uL (4.30-5.70) Hemoglobin 9.9 g/dL (13.0-17.5) Hematocrit 29.7 % (39.0-53.0) Mean Corpuscular Volume 94 fL (79-100) Mean Corpuscular Hemoglobin 31 pg (25-35) Mean Corpuscular Hemoglobin Concent 33 g/dL (31-37) Red Cell Distribution Width 13.9 % (11.5-14.5) Platelet Count 141 x10^3/uL (140-400) Neutrophils (%) (Auto) 54 % (31-73) Lymphocytes (%) (Auto) 28 % (24-48) Monocytes (%) (Auto) 14 % (0-9) Eosinophils (%) (Auto) 3 % (0-3) Basophils (%) (Auto) 1 % (0-3) Neutrophils # (Auto) 1.9 x10^3uL (1.8-7.7) Lymphocytes # (Auto) 1.0 x10^3/uL (1.0-4.8) Monocytes # (Auto) 0.5 x10^3/uL (0.0-1.1) Eosinophils # (Auto) 0.1 x10^3/uL (0.0-0.7) Basophils # (Auto) 0.0 x10^3/uL (0.0-0.2) Sodium Level 136 mmol/L (136-145) Potassium Level 4.2 mmol/L (3.5-5.1) Chloride Level 102 mmol/L (98-107) Carbon Dioxide Level 31 mmol/L (21-32) Anion Gap 3 (6-14) Blood Urea Nitrogen 36 mg/dL (8-26) Creatinine 2.4 mg/dL (0.7-1.3) Estimated GFR (Cockcroft-Gault) 31.7 Glucose Level 106 mg/dL (70-99) Calcium Level 8.7 mg/dL (8.5-10.1) Physical Exam HEENT: Neck Supple W Full Motion Chest: Symmetric LUNGS: Other (diminished bases) Heart: S1S2, RRR (paced with episodes of wenkebach), irregularly irregular ( AFIB) Abdomen: Soft N/T Extremities: No Calf Tenderness, Other (LA edema) Neurology: alert, oriented, follow commands Assessment Assessment 1. PAflutter RVR: Still HR in 110s despite increased in toprol. No acute etiology for tachycardia. Per repeat interrogation notable for Wenckebach and atrial tach vs atrial flutter otherwise sinus tach with pacing. No cardiac symptoms. 2. 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 Accdg to staff HR in the 70s is not accurate. 3. LUE DVT: per PCP 4. HTN; controlled 5. Chronic systolic CHF: compensated 6. CKD4? 7. CAD: CP free. Recommendations 1. Will not be able to place on digoxin given his renal function. Would not advise cardizem due to negative inotropic effects. Given his ICM and notable paroxysmal atrial flutter will place on amiodarone at this time with 400 mg po bid x7days then 200 mg daily thereafter as this will also help attenuate his tachycardia. Continue on toprol 2. Anticoagulation for arm DVT per DVT and anticipating to decreased to 2.5 mg for stroke prevention as well. 3. Anticipate DC this afternoon and follow up with primary pediatric hospitalist in 2 weeks. BABAR CAMPOS MD 03/16/17 9133: CARDIO Progress Notes Assessment Assessment Patient seen and examined The patient remains comfortable today. Rate remains greater than 100. Continuing on beta alex. Will attempt a trial of amiodarone. We'll also attempt to contact the EP physicians. Possibly home later today on these medications and a follow-up with his regular EP physician at [facility] soon after discharge. BELINDA VILLALPANDO APRN Mar 16, 2017 11:53 BABAR CAMPOS MD Mar 16, 2017 15:56
[2017-03-16 15:00] VITALS: BP 121/62
[2017-03-16 18:34] VITALS: BP 117/63
[2017-03-16] MEDS ORDERED: FAMOTIDINE 20 MG TABLET. PO SCH (21:00)
[2017-03-16] MEDS: CALCIUM CARBONATE 500 MG TAB.CHEW PO PRN (21:03)
[2017-03-16] MEDS: MAG HYDROX/ALUMINUM HYD/SIMETH 30 ML ORAL.SUSP PO PRN (21:03)
[2017-03-16] MEDS: TAMSULOSIN 0.4 MG CAP.ER.24H. PO SCH (21:04)
[2017-03-16] MEDS: traMADol 50 MG TABLET PO PRN (21:04)
[2017-03-16] MEDS: LATANOPROST 0.005% OPHTH SOLUTION 2.5ML BOTTLE. OU SCH (21:05)
[2017-03-16 23:42] VITALS: BP 125/89
[2017-03-17] MEDS: ACETAMINOPHEN 325 MG TABLET. PO PRN (00:27)
[2017-03-17] MEDS: CALCIUM CARBONATE 500 MG TAB.CHEW PO PRN ×3 (00:37→09:26)
[2017-03-17] MEDS: MAG HYDROX/ALUMINUM HYD/SIMETH 30 ML ORAL.SUSP PO PRN ×3 (00:37→10:36)
[2017-03-17 02:53] VITALS: BP 112/84
[2017-03-17] MEDS: HYDROcodone/APAP 7.5/325MG 1 TAB TABLET PO PRN ×2 (04:55→12:09)
[2017-03-17] MEDS ORDERED: NITROGLYCERIN SUBLINGUAL 0.4 MG BOTTLE OF 25. SL PRN (05:00)
[2017-03-17 05:22] LABS: BASO % 1 % (0-3); EOS % 2 % (0-3); HEMATOCRIT 31.1 % (39.0-53.0); HEMOGLOBIN 10.4 g/dL (13.0-17.5); LYMPH # 0.8 x10^3/uL (1.0-4.8); LYMPH % 20 % (24-48); MEAN CORPUSCULAR HEMOGLOBIN 32 pg (25-35); MEAN CORPUSCULAR HGB CONC 34 g/dL (31-37); MEAN CORPUSCULAR VOLUME 94 fL (79-100); MONO % 14 % (0-9); NEUT % 63 % (31-73); PLATELET COUNT 154 x10^3/uL (140-400); RED CELL DISTRIBUTION WIDTH 14.1 % (11.5-14.5); WHITE BLOOD COUNT 3.8 x10^3/uL (4.0-11.0)
[2017-03-17 06:00] LABS: CALCIUM 8.6 mg/dL (8.5-10.1); CREATININE 2.4 mg/dL (0.7-1.3); GFR 31.7; POTASSIUM 4.3 mmol/L (3.5-5.1)
[2017-03-17] MEDS: LEVOTHYROXINE 75 MCG TABLET PO SCH (06:39)
[2017-03-17 07:00] VITALS: BP 133/92
[2017-03-17] MEDS: POTASSIUM CHLORIDE 10 MEQ TABLET.ER. PO SCH (09:00)
[2017-03-17] MEDS: AMIODARONE HCL 200 MG TABLET. PO SCH (09:26)
[2017-03-17] MEDS: APIXABAN 5 MG TABLET. PO SCH (09:27)
[2017-03-17] MEDS: PANTOPRAZOLE 40 MG TABLET.DR. PO SCH (09:27)
[2017-03-17] MEDS: SACUBITRIL/VALSARTAN 24/26MG TABLET. PO SCH (09:27)
[2017-03-17] MEDS: METOPROLOL SUCC 24HR ER 100 MG TAB.ER.24H. PO SCH (09:28)
[2017-03-17] MEDS: DORZOLAMIDE 2% OPHTH SOLUTION 10ML BOTTLE. OS SCH (09:41)
[2017-03-17 11:00] VITALS: BP 100/73
--- NOTE | 2017-03-17 11:53 | PDOC ---
PROGRESS NOTES Subjective Subjective still has symptomatic tachycardia intermittently. discussed with patient and his at bedside and nurse and would like to transfer him to [facility] where he had pacemaker lead replacement the other week. Objective Objective Vital Signs Date Time Temp Pulse Resp B/P (MAP) Pulse Ox O2 Delivery O2 Flow Rate FiO2 03/17/17 11:00 97.4 110 18 100/73 (82) 97 Nasal Cannula 2.0 97.4 Intake and Output 03/17/17 07:00 Intake Total 2280 ml Output Total 400 ml Balance 1880 ml Intake Oral 2280 ml Output Urine Total 400 ml # Voids 4 # Bowel Movements 2 Physical Exam Abdomen: Normal bowel sounds Heart: Normal S1, Normal S2 Extremities: No edema General: Alert HEENT: Atraumatic Lungs: Clear to auscultation Neuro: Normal speech Psych/Mental Status: Mental status NL Skin: No rashes Assessment Assessment ProblemsParoxysmal atrial flutter/fibrillation with RVR -VR better but still over 100 Non -ischemic cardiomyopathy. LVEF 25 to 30% chronic kidney disease stage 3 recent placement of new right ventricular endocardial pacemaker lead and adjust of left ventricular epicardial pacemaker lead at 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 six pack loader operator to see if patient can be transferred there continue metoprolol continue eliquis continue entresto Comment Review of Relevant I have reviewed the following items kim (where applicable) has been applied. Labs Laboratory Tests Test 03/16/17 04:30 03/17/17 04:10 White Blood Count 3.6 x10^3/uL (4.0-11.0) 3.8 x10^3/uL (4.0-11.0) Red Blood Count 3.18 x10^6/uL (4.30-5.70) 3.30 x10^6/uL (4.30-5.70) Hemoglobin 9.9 g/dL (13.0-17.5) 10.4 g/dL (13.0-17.5) Hematocrit 29.7 % (39.0-53.0) 31.1 % (39.0-53.0) Mean Corpuscular Volume 94 fL (79-100) 94 fL (79-100) Mean Corpuscular Hemoglobin 31 pg (25-35) 32 pg (25-35) Mean Corpuscular Hemoglobin Concent 33 g/dL (31-37) 34 g/dL (31-37) Red Cell Distribution Width 13.9 % (11.5-14.5) 14.1 % (11.5-14.5) Platelet Count 141 x10^3/uL (140-400) 154 x10^3/uL (140-400) Neutrophils (%) (Auto) 54 % (31-73) 63 % (31-73) Lymphocytes (%) (Auto) 28 % (24-48) 20 % (24-48) Monocytes (%) (Auto) 14 % (0-9) 14 % (0-9) Eosinophils (%) (Auto) 3 % (0-3) 2 % (0-3) Basophils (%) (Auto) 1 % (0-3) 1 % (0-3) Neutrophils # (Auto) 1.9 x10^3uL (1.8-7.7) 2.4 x10^3uL (1.8-7.7) Lymphocytes # (Auto) 1.0 x10^3/uL (1.0-4.8) 0.8 x10^3/uL (1.0-4.8) Monocytes # (Auto) 0.5 x10^3/uL (0.0-1.1) 0.5 x10^3/uL (0.0-1.1) Eosinophils # (Auto) 0.1 x10^3/uL (0.0-0.7) 0.1 x10^3/uL (0.0-0.7) Basophils # (Auto) 0.0 x10^3/uL (0.0-0.2) 0.0 x10^3/uL (0.0-0.2) Sodium Level 136 mmol/L (136-145) 134 mmol/L (136-145) Potassium Level 4.2 mmol/L (3.5-5.1) 4.3 mmol/L (3.5-5.1) Chloride Level 102 mmol/L (98-107) 100 mmol/L (98-107) Carbon Dioxide Level 31 mmol/L (21-32) 28 mmol/L (21-32) Anion Gap 3 (6-14) 6 (6-14) Blood Urea Nitrogen 36 mg/dL (8-26) 35 mg/dL (8-26) Creatinine 2.4 mg/dL (0.7-1.3) 2.4 mg/dL (0.7-1.3) Estimated GFR (Cockcroft-Gault) 31.7 31.7 Glucose Level 106 mg/dL (70-99) 125 mg/dL (70-99) Calcium Level 8.7 mg/dL (8.5-10.1) 8.6 mg/dL (8.5-10.1) Laboratory Tests Test 03/17/17 04:10 White Blood Count 3.8 x10^3/uL (4.0-11.0) Red Blood Count 3.30 x10^6/uL (4.30-5.70) Hemoglobin 10.4 g/dL (13.0-17.5) Hematocrit 31.1 % (39.0-53.0) Mean Corpuscular Volume 94 fL (79-100) Mean Corpuscular Hemoglobin 32 pg (25-35) Mean Corpuscular Hemoglobin Concent 34 g/dL (31-37) Red Cell Distribution Width 14.1 % (11.5-14.5) Platelet Count 154 x10^3/uL (140-400) Neutrophils (%) (Auto) 63 % (31-73) Lymphocytes (%) (Auto) 20 % (24-48) Monocytes (%) (Auto) 14 % (0-9) Eosinophils (%) (Auto) 2 % (0-3) Basophils (%) (Auto) 1 % (0-3) Neutrophils # (Auto) 2.4 x10^3uL (1.8-7.7) Lymphocytes # (Auto) 0.8 x10^3/uL (1.0-4.8) Monocytes # (Auto) 0.5 x10^3/uL (0.0-1.1) Eosinophils # (Auto) 0.1 x10^3/uL (0.0-0.7) Basophils # (Auto) 0.0 x10^3/uL (0.0-0.2) Sodium Level 134 mmol/L (136-145) Potassium Level 4.3 mmol/L (3.5-5.1) Chloride Level 100 mmol/L (98-107) Carbon Dioxide Level 28 mmol/L (21-32) Anion Gap 6 (6-14) Blood Urea Nitrogen 35 mg/dL (8-26) Creatinine 2.4 mg/dL (0.7-1.3) Estimated GFR (Cockcroft-Gault) 31.7 Glucose Level 125 mg/dL (70-99) Calcium Level 8.6 mg/dL (8.5-10.1) Medications Current Medications Sodium Chloride 1,000 ml @ 100 mls/hr Q10H IV Last administered on 03/12/17 01:00; Start 03/12/17 at 00:00; Stop 03/12/17 at 02:56; Status DC Diltiazem HCl (Cardizem) 20 mg 1X ONCE IVP Last administered on 03/12/17 00: 03; Start 03/12/17 at 00:30; Stop 03/12/17 at 00:31; Status DC Diltiazem HCl 125 mg/Sodium Chloride 125 ml @ 10 mls/hr 1X ONCE IV Last administered on 03/12/17 00:16; Start 03/12/17 at 00:30; Stop 03/12/17 at 10 :25; Status DC Diltiazem HCl (Cardizem) 25 mg STK-MED ONCE .ROUTE ; Start 03/11/17 at 23:59; Stop 03/12/17 at 00:00; Status DC Ondansetron HCl (Zofran) 4 mg PRN Q8HRS PRN IV NAUSEA/VOMITING; Start at 01:15; Stop 03/13/17 at 01:14; Status DC Fentanyl Citrate (Fentanyl 2ml Vial) 50 mcg PRN Q2HR PRN IV SEVERE PAIN; Start 03/12/17 at 01:15; Stop 03/13/17 at 01:14; Status DC Sodium Chloride 1,000 ml @ 30 mls/hr Q24H IV ; Start 03/12/17 at 01:09; Stop 03/13/17 at 01:08; Status DC Acetaminophen (Tylenol) 650 mg PRN Q4HRS PRN PO FEVER; Start 03/12/17 at 01:15 ; Stop 03/12/17 at 09:28; Status DC Info (Do NOT chart on this placeholder) 1 each 1X ONCE MC ; Start 03/12/17 at 02:15; Stop 03/12/17 at 02:16; Status UNV Influenza Virus Vaccine Quadrival (Fluarix Quad [id number] Syringe) 0.5 ml ONCE ONCE VAX IM Last administered on 03/13/17 18:18; Start 03/12/17 at 09:00; Stop 03/12/17 at 09:01; Status DC Apixaban (Eliquis) 10 mg BID PO ; Start 03/12/17 at 21:00; Stop 03/12/17 at 21 :00; Status DC Metoprolol Succinate (Toprol Xl) 50 mg DAILY PO ; Start 03/12/17 at 10:00; Stop 03/12/17 at 10:25; Status DC Potassium Chloride (Klor-Con) 10 meq QODAY PO ; Start 03/14/17 at 09:00; Stop 03/14/17 at 09:00; Status DC Amiodarone HCl (Cordarone) 200 mg DAILY PO Last administered on 03/16/17 08: 44; Start 03/12/17 at 10:00; Stop 03/16/17 at 11:16; Status DC Tramadol HCl (Ultram) 50 mg PRN Q6HRS PRN PO PAIN Last administered on 21:04; Start 03/12/17 at 09:15 Acetaminophen (Tylenol) 650 mg PRN Q6HRS PRN PO MILD PAIN / TEMP Last administered on 03/17/17 00:27; Start 03/12/17 at 09:15 Magnesium Hydroxide (Milk Of Magnesia) 2,400 mg PRN DAILY PRN PO CONSTIPATION; Start 03/12/17 at 09:15 Furosemide (Lasix) 40 mg QODAY PO Last administered on 03/16/17 08:44; Start 03/14/17 at 09:00 Levothyroxine Sodium (Synthroid) 75 mcg DAILY07 PO Last administered on 06:39; Start 03/12/17 at 10:00 Pantoprazole Sodium (Protonix) 40 mg DAILYAC PO Last administered on 09:27; Start 03/12/17 at 10:00 Tamsulosin HCl (Flomax) 0.4 mg QHS PO Last administered on 03/16/17 21:04; Start 03/12/17 at 21:00 Dorzolamide HCl (Trusopt) 1 drop BID OS Last administered on 03/17/17 09:41; Start 03/12/17 at 21:00 Sacubitril/ Valsartan (Entresto 24 Mg-26 Mg) 1 tab BID PO ; Start 03/12/17 at 10:00; Stop 03/12/17 at 10:25; Status DC Al Hydroxide/Mg Hydroxide (Mylanta Plus Xs) 30 ml PRN Q2HR PRN PO HEARTBURN / GAS Last administered on 03/17/17 10:36; Start 03/12/17 at 09:15 Latanoprost (Xalatan) 1 drop QHS OU Last administered on 03/16/17 21:05; Start 03/12/17 at 21:00 Apixaban (Eliquis) 2.5 mg BID PO ; Start 03/12/17 at 10:30; Stop 03/12/17 at 10:30; Status DC Metoprolol Succinate (Toprol Xl) 75 mg DAILY PO Last administered on 08:07; Start 03/13/17 at 09:00; Stop 03/13/17 at 09:00; Status DC Digoxin (Lanoxin) 500 mcg 1X ONCE IV Last administered on 03/12/17 12:33; Start 03/12/17 at 12:00; Stop 03/12/17 at 12:01; Status DC Metoprolol Succinate (Toprol Xl) 75 mg 1X ONCE PO Last administered on 16:22; Start 03/12/17 at 16:00; Stop 03/12/17 at 16:01; Status DC Apixaban (Eliquis) 10 mg BID PO Last administered on 03/15/17 20:13; Start 03/12/17 at 16:30; Stop 03/15/17 at 21:00; Status DC Metoprolol Succinate (Toprol Xl) 100 mg DAILY PO Last administered on 09:16; Start 03/14/17 at 09:00; Stop 03/14/17 at 14:34; Status DC Metoprolol Succinate (Toprol Xl) 25 mg 1X ONCE PO Last administered on 09:38; Start 03/13/17 at 09:00; Stop 03/13/17 at 09:01; Status DC Potassium Chloride (Klor-Con) 10 meq DAILY PO Last administered on 03/17/17 09:00; Start 03/13/17 at 09:30 Calcium Carbonate/ Glycine (Tums) 500 mg PRN Q3HRS PRN PO INDIGESTION Last administered on 03/17/17 09:26; Start 03/13/17 at 16:45 Info (Anti-Coagulation Monitoring By Pharmacy) 1 each PRN DAILY PRN MC SEE COMMENTS Last administered on 03/16/17 11:15; Start 03/14/17 at 07:45 Sacubitril/ Valsartan (Entresto 24 Mg-26 Mg) 1 tab BID PO Last administered on 03/17/17 09:27; Start 03/14/17 at 09:00 Metoprolol Succinate (Toprol Xl) 150 mg DAILY PO Last administered on 09:44; Start 03/15/17 at 09:00; Stop 03/15/17 at 16:14; Status DC Metoprolol Succinate (Toprol Xl) 50 mg 1X ONCE PO Last administered on 16:21; Start 03/14/17 at 14:45; Stop 03/14/17 at 14:46; Status DC Apixaban (Eliquis) 5 mg BID PO Last administered on 03/17/17 09:27; Start at 09:00 Metoprolol Succinate (Toprol Xl) 200 mg DAILY PO Last administered on 09:28; Start 03/16/17 at 09:00 Metoprolol Succinate (Toprol Xl) 50 mg 1X ONCE PO Last administered on 17:37; Start 03/15/17 at 16:15; Stop 03/15/17 at 16:16; Status DC Famotidine (Pepcid) 20 mg QHS PO Last administered on 03/16/17 21:04; Start 03/16/17 at 21:00 Amiodarone HCl (Cordarone) 400 mg BID PO Last administered on 03/17/17 09:26 ; Start 03/16/17 at 12:00 Acetaminophen/ Hydrocodone Bitart (Lortab 7.5/325) 1 tab PRN Q4HRS PRN PO PAIN Last administered on 03/17/17 04:55; Start 03/17/17 at 01:00 Nitroglycerin (Nitrostat) 0.4 mg PRN Q5MIN PRN SL CHEST PAIN; Start 03/17/17 at 05:00 Active Scripts Active Carvedilol 12.5 Mg Tablet 25 Mg PO BIDWMEALS Amiodarone Hcl 200 Mg Tablet 200 Mg PO DAILY Protonix (Pantoprazole Sodium) 40 Mg Tablet 40 Mg PO DAILYAC Reported Dulcolax (Bisacodyl) 10 Mg Supp.rect 10 Mg RC PRN DAILY PRN Milk Of Magnesia (Magnesium Hydroxide) 2,400 Mg/10 Ml Oral.susp 2,400 Mg PO Protonix (Pantoprazole Sodium) 40 Mg Tablet.dr 1 Tab PO DAILY Tylenol (Acetaminophen) 325 Mg Tablet 1-2 Tab PO QID Tramadol Hcl 50 Mg Tablet 50 Mg PO Q6H PRN Eliquis (Apixaban) 5 Mg Tablet 5 Mg PO BID Potassium Chloride 10 Meq Tablet.er 10 Meq PO DAILY Furosemide 40 Mg Tablet 40 Mg PO DAILY Tamsulosin Hcl 0.4 Mg Cap.er.24h 1 Cap PO BIDAFTMEAL Synthroid (Levothyroxine Sodium) 75 Mcg Tablet 75 Mcg PO DAILYAC Dorzolamide-Timolol Eye Drops (Dorzolamide Hcl/Timolol Maleat) 10 Ml Drops 1 Drop EACHEYE BID Vitals/I & O Vital Sign - Last 24 Hours 03/16/17 03/16/17 03/16/17 03/16/17 13:26 15:00 18:34 20:00 Temp 97.4 98.5 97.4 98.5 Pulse 106 112 113 Resp 20 18 B/P (MAP) 117/65 121/62 (81) 117/63 (81) Pulse Ox 96 96 O2 Delivery Nasal Cannula Room Air Nasal Cannula O2 Flow Rate 2.0 2.0 03/16/17 03/16/17 03/16/17 03/16/17 21:04 21:04 21:04 22:04 Pulse 113 113 B/P (MAP) 117/63 117/63 O2 Delivery Nasal Cannula Nasal Cannula O2 Flow Rate 2.0 2.0 03/16/17 03/17/17 03/17/17 03/17/17 23:42 02:53 04:55 05:55 Temp 98.1 97.7 98.1 97.7 Pulse 128 129 Resp 18 16 B/P (MAP) 125/89 (101) 112/84 (93) Pulse Ox 95 99 99 99 O2 Delivery Nasal Cannula Nasal Cannula Nasal Cannula Nasal Cannula O2 Flow Rate 2.0 2.0 2.0 2.0 03/17/17 03/17/17 03/17/17 03/17/17 07:00 09:26 09:27 09:28 Temp 97.6 97.6 Pulse 120 120 120 120 Resp 18 B/P (MAP) 133/92 (106) 133/92 133/92 133/92 Pulse Ox 98 O2 Delivery Nasal Cannula O2 Flow Rate 2.0 03/17/17 11:00 Temp 97.4 97.4 Pulse 110 Resp 18 B/P (MAP) 100/73 (82) Pulse Ox 97 O2 Delivery Nasal Cannula O2 Flow Rate 2.0 Intake and Output 03/16/17 03/16/17 03/17/17 15:00 23:00 07:00 Intake Total 1000 ml 1280 ml Output Total 400 ml Balance -400 ml 1000 ml 1280 ml MYKE CHOUDHURY MD Mar 17, 2017 11:52
[2017-03-17 12:19] VITALS: BP 164/80
[2017-03-17] MEDS ORDERED: HYDROcodone/APAP 5/325MG 1 TAB TABLET PO PRN (12:30)
--- NOTE | 2017-03-17 14:23 | DISCH ---
DISCHARGE INSTRUCTIONS Condition on Discharge Condition on Discharge: Stable Activity After Discharge Activity Instructions for Disc: Resume previous activity Diet after Discharge Diet after Discharge: Cardiac Contacting the DRPatricia after DC Call your doctor for: If your condition worsens Follow-Up Follow up with: dr. olivarez at [facility] MYKE CHOUDHURY MD Mar 17, 2017 14:23
--- NOTE | 2017-03-17 14:23 | PDOC ---
Provider Note Provider Note discharge summary dictated # [id number] MYKE CHOUDHURY MD Mar 17, 2017 14:23
[2017-03-17 15:01] VITALS: BP 107/81
--- NOTE | 2017-03-17 15:31 | PDOC ---
CARDIO Progress Notes Date and Time Date of Service 03/17/2017 Time of Evaluation 1450 Subjective Subjective: No shortness of breath, No Palpitations, Other (complians of arm discomfort and achy) Vitals Vitals Vital Signs Date Time Temp Pulse Resp B/P (MAP) Pulse Ox O2 Delivery O2 Flow Rate FiO2 03/17/17 15:01 97.5 132 18 107/81 (90) 98 Nasal Cannula 2.0 97.5 Weight Weight [ ] Input and Output Intake and Output Intake and Output 03/17/17 07:00 Intake Total 2280 ml Output Total 400 ml Balance 1880 ml Intake Oral 2280 ml Output Urine Total 400 ml # Voids 4 # Bowel Movements 2 Laboratory Labs Laboratory Tests Test 03/17/17 04:10 White Blood Count 3.8 x10^3/uL (4.0-11.0) Red Blood Count 3.30 x10^6/uL (4.30-5.70) Hemoglobin 10.4 g/dL (13.0-17.5) Hematocrit 31.1 % (39.0-53.0) Mean Corpuscular Volume 94 fL (79-100) Mean Corpuscular Hemoglobin 32 pg (25-35) Mean Corpuscular Hemoglobin Concent 34 g/dL (31-37) Red Cell Distribution Width 14.1 % (11.5-14.5) Platelet Count 154 x10^3/uL (140-400) Neutrophils (%) (Auto) 63 % (31-73) Lymphocytes (%) (Auto) 20 % (24-48) Monocytes (%) (Auto) 14 % (0-9) Eosinophils (%) (Auto) 2 % (0-3) Basophils (%) (Auto) 1 % (0-3) Neutrophils # (Auto) 2.4 x10^3uL (1.8-7.7) Lymphocytes # (Auto) 0.8 x10^3/uL (1.0-4.8) Monocytes # (Auto) 0.5 x10^3/uL (0.0-1.1) Eosinophils # (Auto) 0.1 x10^3/uL (0.0-0.7) Basophils # (Auto) 0.0 x10^3/uL (0.0-0.2) Sodium Level 134 mmol/L (136-145) Potassium Level 4.3 mmol/L (3.5-5.1) Chloride Level 100 mmol/L (98-107) Carbon Dioxide Level 28 mmol/L (21-32) Anion Gap 6 (6-14) Blood Urea Nitrogen 35 mg/dL (8-26) Creatinine 2.4 mg/dL (0.7-1.3) Estimated GFR (Cockcroft-Gault) 31.7 Glucose Level 125 mg/dL (70-99) Calcium Level 8.6 mg/dL (8.5-10.1) Physical Exam HEENT: Neck Supple W Full Motion Chest: Symmetric LUNGS: Clear to Auscultation Heart: S1S2, RRR (paced with inrregular HR in the 110-120s) Abdomen: Soft N/T Extremities: No Calf Tenderness, Other (LA edema) Neurology: alert, oriented, follow commands Assessment Assessment 1. PAflutter RVR: Still HR in 110-130s despite increased in toprol and start of amiodarone. No acute etiology for tachycardia. Per repeat interrogation notable for Wenckebach and atrial tach vs atrial flutter otherwise sinus tach with pacing. No cardiac symptoms. 2. 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 3. LUE DVT: per PCP 4. HTN; controlled 5. Chronic systolic CHF: compensated 6. CKD4? 7. CAD: CP free. Recommendations 1. Continue with toprol and amiodarone for now. Discussed with PCP and pt would likely need to be seen by EP which is not available in this facility. Will transfer to [facility] and to be followed by his regular industrial tractor driver over there and make a referral to EP. Discussed with primary industrial tractor driver. 2. Anticoagulation for arm DVT per DVT and anticipating to decreased to 2.5 mg for stroke prevention as well. 3. Continue with optimization. BELINDA VILLALPANDO RADIATION ONCOLOGY MANAGER Mar 17, 2017 15:31
--- NOTE | 2017-03-17 17:24 | DS ---
DATE OF DISCHARGE: 03/17/2017 SALES ANALYTICS MANAGER: Dr. Handy. FINAL DIAGNOSES: 1. Paroxysmal atrial flutter with a rapid ventricular response. 2. Nonischemic cardiomyopathy with left ventricular ejection fraction of 25-30%. 3. Chronic kidney disease, stage 3. 4. Recent placement of new right ventricular endocardial lead and adjustment of left ventricular epicardial pacemaker lead about week and half ago. 5. Morbid obesity. 6. Deconditioning. 7. Hypothyroidism. 8. Deep vein thrombosis of left subclavian, axillary and internal jugular veins. 9. Gastroesophageal reflux disease. HOSPITAL COURSE: The patient is an 81-year-old male with a history of nonischemic cardiomyopathy with left ventricular ejection fraction around 27%, has chronic kidney disease stage 3 and chronic systolic congestive heart failure, recently dismissed from [facility] on 03/03/2017 where he underwent a revision of his pacemaker leads with a new right ventricular endocardial pacemaker lead placed and a revision/adjustment of a preexisting left epicardial lead. He had some problems with hypotension and his furosemide was changed to every other day and his Entresto was decreased to 24/26 mg 1 b.i.d. He was placed in a left shoulder immobilizer and was admitted to a snf facility. A venous Doppler at the snf facility was positive for deep vein thrombosis in the left upper extremity involving the axillary vein and his Eliquis was increased to [address] Pisano. The patient had some episodes of tachycardia and went to the [facility] Emergency Room where he was noted to be in paroxysmal atrial flutter, was subsequently admitted to the hospital and started on IV Cardizem drip. He was seen by the sprayer machine, Dr. Handy. He was started on metoprolol, which eventually was increased to 200 mg once a day, but continued to have tachycardia. His carvedilol was discontinued. His Entresto was resumed. Repeat venous Doppler of the left upper extremity showed a deep vein thrombosis involving the left subclavian, left axillary and left internal jugular vein. His Eliquis was changed from 10 mg b.i.d. after 1 week of treatment to 5 mg b.i.d. to treat his deep vein thrombosis. He does have chronic kidney disease stage 3. Despite efforts to lower the ventricular rate, he continued to have periods of rapid tachycardia and I discussed the case with Dr. Pisano, was willing to accept the patient at [facility] later today as a direct admit since as there is an EPS sprayer machine at [facility] who can help with his problems of tachycardia. He therefore will be dismissed to [facility], be admitted to Dr. Pisano later today on Tylenol 650 mg every 6 hours p.r.n., amiodarone which was just started at 400 mg b.i.d., Eliquis 5 mg b.i.d. for his deep vein thrombosis, Pepcid 20 mg at bedtime, furosemide 40 mg every other day, [place] 5/325 one every 4 hours p.r.n., Xalatan one drop in both eyes at bedtime, levothyroxine 75 mcg every day, metoprolol succinate 200 mg every day, nitroglycerin 0.4 mg sublingual p.r.n., Protonix 40 mg every day, potassium chloride 10 mEq every day, Entresto 24/26 mg 1 b.i.d., tamsulosin 0.4 mg at bedtime and tramadol 50 mg every 6 hours p.r.n. MYKE CHOUDHURY MD DR: MARIA ESTHER/henry JOB#: [id number] / [id number]
[2017-04-29] MEDS ORDERED: SACU1TAB PO (04:40)
[2017-04-29] MEDS ORDERED: METO200T5 PO (04:40)
[2017-04-29] MEDS ORDERED: AMIO200T2 PO (04:40)
[2017-04-29] MEDS ORDERED: LATA2.5D2 OP (04:43)
[2017-04-29] MEDS ORDERED: HYDR-971 PO (04:43)
[2017-04-29] MEDS ORDERED: FURO-68 PO (10:36)
[2017-04-29] MEDS ORDERED: APIX2.5T PO (10:36)
[2017-04-29] MEDS ORDERED: CARV25TA PO (10:46)
[2017-04-29] MEDS ORDERED: DORZ10DR7 EACHEYE (10:46)
[2017-05-02] MEDS ORDERED: CEPH500T PO (10:09)
[2017-05-02] MEDS ORDERED: AMIO200T2 PO (10:09)
== END 2017-03-17 15:30 | DRG 683 ==
LOC: ER 23:20 → 2 NORTH 03-12 00:53
PROVIDERS: ADMIT Internal Medicine; ATTEND Internal Medicine
PROC: 4B02XSZ Measurement of Cardiac Pacemaker, External Approach (ICD-10-PCS; principal; 2017-03-12)
DX: N17.9 Acute kidney failure, unspecified (principal); I48.92 Unspecified atrial flutter; I95.9 Hypotension, unspecified; J96.10 Chronic respiratory failure, unspecified whether with hypoxia or hypercapnia; I13.0 Hypertensive heart and chronic kidney disease with heart failure and stage 1 through stage 4 chronic kidney disease, or unspecified chronic kidney disease; I82.622 Acute embolism and thrombosis of deep veins of left upper extremity; I50.22 Chronic systolic (congestive) heart failure; I82.A12 Acute embolism and thrombosis of left axillary vein; I48.0 Paroxysmal atrial fibrillation; E66.01 Morbid (severe) obesity due to excess calories; I44.1 Atrioventricular block, second degree; I82.B12 Acute embolism and thrombosis of left subclavian vein; I82.C12 Acute embolism and thrombosis of left internal jugular vein; Z68.41 Body mass index [BMI] 40.0-44.9, adult; I25.5 Ischemic cardiomyopathy; N18.3 Chronic kidney disease, stage 3 (moderate); K21.9 Gastro-esophageal reflux disease without esophagitis; E03.9 Hypothyroidism, unspecified; E78.5 Hyperlipidemia, unspecified; H40.9 Unspecified glaucoma; I25.10 Atherosclerotic heart disease of native coronary artery without angina pectoris; M19.90 Unspecified osteoarthritis, unspecified site; Z96.653 Presence of artificial knee joint, bilateral; Z79.01 Long term (current) use of anticoagulants; Z85.46 Personal history of malignant neoplasm of prostate; Z92.3 Personal history of irradiation; Z95.810 Presence of automatic (implantable) cardiac defibrillator; Z90.49 Acquired absence of other specified parts of digestive tract; Z90.89 Acquired absence of other organs
CPT/HCPCS: 36415; 71010; 78582; 80048; 80053; 82553; 83690; 83735; 83880; 84443; 84484; 85025; 90686; 93005; 93971; 96365; 96374; 96376; A9540; A9558; J1160; J3490; J7030; 97116; 97535; 99291-25

== ENCOUNTER 2017-10-17 14:53 | Emergency (ER) | payer OTHER, MEDICARE ==
[2017-10-17 15:12] LABS: ADD MAN DIFF? NO
[2017-10-17 15:18] LABS: BASO % 0 % (0-3); EOS % 2 % (0-3); HEMATOCRIT 34.1 % (39.0-53.0); HEMOGLOBIN 11.4 g/dL (13.0-17.5); LYMPH # 0.7 x10^3/uL (1.0-4.8); LYMPH % 32 % (24-48); MEAN CORPUSCULAR HEMOGLOBIN 31 pg (25-35); MEAN CORPUSCULAR HGB CONC 33 g/dL (31-37); MEAN CORPUSCULAR VOLUME 94 fL (79-100); MONO # 0.4 x10^3/uL (0.0-1.1); MONO % 16 % (0-9); NEUT # 1.2 x10^3uL (1.8-7.7); NEUT % 50 % (31-73); PLATELET COUNT 141 x10^3/uL (140-400); RED BLOOD COUNT 3.63 x10^6/uL (4.30-5.70); RED CELL DISTRIBUTION WIDTH 15.8 % (11.5-14.5); WHITE BLOOD COUNT 2.3 x10^3/uL (4.0-11.0)
[2017-10-17] MEDS: FUROSEMIDE 40 MG/4 ML VIAL. IVP (15:24)
[2017-10-17] MEDS: NITROGLYCERIN OINT 1 GM PACKET. TP (15:24)
[2017-10-17 15:27] LABS: INR 1.9 (0.8-1.1)
[2017-10-17 15:31] LABS: ANION GAP 5 (6-14); BLOOD UREA NITROGEN 47 mg/dL (8-26); BUN/CREATININE RATIO 17 (6-20); CALCIUM 8.8 mg/dL (8.5-10.1); CARBON DIOXIDE 32 mmol/L (21-32); CHLORIDE 98 mmol/L (98-107); CREATININE 2.8 mg/dL (0.7-1.3); GFR 26.4; GLUCOSE 144 mg/dL (70-99); POTASSIUM 4.2 mmol/L (3.5-5.1); SODIUM 135 mmol/L (136-145)
[2017-10-17 15:37] LABS: ALBUMIN 3.7 g/dL (3.4-5.0); ALBUMIN/GLOBULIN RATIO 1.1 (1.0-1.7); ALK PHOS 68 U/L (46-116); ALT (SGPT) 21 U/L (16-63); AST (SGOT) 15 U/L (15-37); TOTAL BILIRUBIN 1.1 mg/dL (0.2-1.0); TOTAL PROTEIN 7.2 g/dL (6.4-8.2)
[2017-10-17 15:38] LABS: TROPONINI 0.027 ng/mL (0.000-0.055)
[2017-10-17 15:42] LABS: NT-PRO BNP 18662 pg/mL (0-449)
[2017-10-17 15:46] LABS: BASE EXCESS ABG 3 mmol/L (-3-3); HCO3 ABG 29 mmol/L (21-28); PCO2 ABG 46 mmHg (35-46); PH ABG 7.41 (7.35-7.45); PO2 ABG 99 mmHg (65-108); SAT O2 ABG 97 % (92-99)
== END 2017-10-17 19:56 | disposition short-term general hospital (02) ==
LOC: ER 14:53
DX: I50.9 Heart failure, unspecified (principal); I13.10 Hypertensive heart and chronic kidney disease without heart failure, with stage 1 through stage 4 chronic kidney disease, or unspecified chronic kidney disease; N18.9 Chronic kidney disease, unspecified; I25.10 Atherosclerotic heart disease of native coronary artery without angina pectoris; E03.9 Hypothyroidism, unspecified
CPT/HCPCS: 36415; 36600; 71045; 80053; 82805; 83880; 84484; 85025; 85610; 93005; 96374; 99285-25; J1940